=== PATIENT | female | born 1965 | race Caucasian/White ===

== ENCOUNTER 2016-07-02 06:31 | Emergency (ER) | payer OTHER ==
[2016-07-02 08:21] LABS: ABSOLUTE EOSINOPHILS # (AUTO) 0.1 10^3/uL (0.0-0.6); ABSOLUTE LYMPHOCYTES (AUTO) 1.1 10^3/uL (0.5-4.7); ABSOLUTE MONOCYTES (AUTO) 0.2 10^3/uL (0.1-1.4); ABSOLUTE NEUT (AUTO) 8.3 10^3/uL (1.7-8.2); BASOPHILS % (AUTO) 0.2 % (0-2); EOSINOPHILS % (AUTO) 0.7 % (0-6); HEMATOCRIT 40.7 % (36.0-47.0); HEMOGLOBIN 13.6 g/dL (12.0-15.5); HGB HCT DIFFERENCE 0.1; LYMPHOCYTES % (AUTO) 11.2 % (13-45); MEAN CORPUSCULAR HGB CONC 33.3 g/dL (32.0-36.0); MEAN CORPUSCULAR VOLUME 87 fl (80-97); MONOCYTES % (AUTO) 2.3 % (3-13); RED BLOOD COUNT 4.68 10^6/uL (3.72-5.28); RED CELL DISTRIBUTION WIDTH 14.3 % (11.5-14.0); SEGMENTED NEUTROPHILS % (AUTO) 85.6 % (42-78); WHITE BLOOD COUNT 9.7 10^3/uL (4.0-10.5)
[2016-07-02] MEDS ORDERED: NORMAL SALINE 1000 ML 1,000 ML IV ONE ×2 (08:28→11:08)
[2016-07-02] MEDS ORDERED: MORPHINE SULFATE 10 MG/ML INJ IV ONE (08:28)
[2016-07-02] MEDS ORDERED: ONDANSETRON HCL INJ/PF 4 MG/2 ML SDV IV ONE (08:28)
[2016-07-02 08:45] LABS: ALANINE AMINOTRANSFERASE 29 U/L (9-52); ALKALINE PHOSPHATASE 85 U/L (38-126); ANION GAP 11 (5-19); ASPARTATE AMINO TRANSFERASE 22 U/L (14-36); BILIRUBIN,DIRECT 0.1 mg/dL (0.0-0.4); BILIRUBIN,TOTAL 0.7 mg/dL (0.2-1.3); BLOOD UREA NITROGEN 7 mg/dL (7-20); CARBON DIOXIDE 26 mmol/L (22-30); CHLORIDE 106 mmol/L (98-107); CREATININE RESULT 0.38 mg/dL (0.52-1.25); GLUCOSE 104 mg/dL (75-110); LIPASE 44.6 U/L (23-300); SODIUM 142.8 mmol/L (137-145)
--- NOTE | 2016-07-02 08:48 | ER Document Report ---
ED General - General Mode of Arrival: Ambulatory Information source: Patient TRAVEL OUTSIDE OF THE [place] IN LAST 30 DAYS: No - HPI Patient complains to provider of: Vomiting Onset: This morning Onset/Duration: Sudden, Persistent Quality of pain: Cramping Associated symptoms: Diarrhea, Nausea, Vomiting. denies: Nonproductive cough, Fever <ABBY WILLETT - Last Filed: 07/02/16 10:25> <DORIS MILLER - Last Filed: 07/02/16 12:42> - General Chief Complaint: Nausea/Vomiting/Diarrhea Stated Complaint: ABDOMINAL PAIN,VOMITING,DIARRHEA Notes: Patient's 51-year-old female presenting to the emergency department chief complaint vomiting onset this morning. Patient states that she has had diarrhea since Saturday, June 30, for which she has been taking Imodium, and began vomiting today with accompanied cramping which eases up after she vomits. Patient denies any fever, cough, or any other symptoms at this time. (ABBY WILLETT) - Related Data Allergies/Adverse Reactions: Sulfa (Sulfonamide Antibiotics) Allergy (Verified 07/02/16 06:35) Past Medical History - General Information source: Patient - Social History Smoking Status: Never Smoker Chew tobacco use (# tins/day): No Frequency of alcohol use: None Lives with: Spouse/Significant other Family History: None, Reviewed & Not Pertinent Patient has suicidal ideation: No Patient has homicidal ideation: No Renal/ Medical History: Denies: Hx Peritoneal Dialysis GI Medical History: Reports: Hx Gastroesophageal Reflux Disease Musculoskeltal Medical History: Reports Hx Musculoskeletal Deformity - Spina bifida Psychiatric Medical History: Reports: Hx Depression - anxiety Past Surgical History: Reports: Hx Cholecystectomy, Hx Neurologic Surgery - Spinal fusion, Hx Orthopedic Surgery - numerous back surgeries - Immunizations Immunizations up to date: Yes Hx Diphtheria, Pertussis, Tetanus Vaccination: Yes <ABBY WILLETT - Last Filed: 07/02/16 10:25> Review of Systems - Review of Systems Constitutional: No symptoms reported. denies: Fever EENT: No symptoms reported Cardiovascular: No symptoms reported Respiratory: No symptoms reported. denies: Cough Gastrointestinal: See HPI, Abdominal pain, Diarrhea, Nausea, Vomiting Genitourinary: No symptoms reported Female Genitourinary: No symptoms reported Musculoskeletal: No symptoms reported Skin: No symptoms reported Hematologic/Lymphatic: No symptoms reported Neurological/Psychological: No symptoms reported <ABBY WILLETT - Last Filed: 07/02/16 10:25> Physical Exam - General General appearance: Alert, Other - Appears uncomfortable - HEENT Head: Normocephalic, Atraumatic Eyes: Normal Pupils: PERRL - Respiratory Respiratory status: No respiratory distress Chest status: Nontender Breath sounds: Normal Chest palpation: Normal - Cardiovascular Rhythm: Regular Heart sounds: Normal auscultation Murmur: No - Abdominal Inspection: Other - Soft Bowel sounds: Normal Tenderness: No: Tender - Back Back: Nontender, Scoliosis - Extremities General upper extremity: Normal inspection, Nontender General lower extremity: Normal inspection, Nontender - Neurological Neuro grossly intact: Yes Cognition: Normal Orientation: AAOx4 [place] Coma Scale Eye Opening: Spontaneous [place] Coma Scale Verbal: Oriented [place] Coma Scale Motor: Obeys Commands [place] Coma Scale Total: 15 Speech: Normal - Psychological Associated symptoms: Normal affect, Normal mood - Skin Skin Temperature: Warm Skin Moisture: Dry Skin Color: Normal <ABBY WILLETT - Last Filed: 07/02/16 10:25> Course - Laboratory Result Diagrams: 07/02/16 08:00 07/02/16 08:00 <ABBY WILLETT - Last Filed: 07/02/16 10:25> - Laboratory Result Diagrams: 07/02/16 08:00 07/02/16 08:00 <DORIS MILLER - Last Filed: 07/02/16 12:42> - Vital Signs Vital signs: Temp Pulse Resp BP Pulse Ox 97.6 F 109 H 18 104/62 98 07/02/16 10:08 07/02/16 10:08 07/02/16 10:08 07/02/16 10:08 07/02/16 10:08 - Laboratory Laboratory results interpreted by nv: 07/02/16 07/02/16 07/02/16 08:00 08:00 08:32 RDW 14.3 H Seg Neutrophils % 85.6 H Lymphocytes % 11.2 L Monocytes % 2.3 L Absolute Neutrophils 8.3 H Creatinine 0.38 L Urine Ketones TRACE H Ur Leukocyte Esterase MODERATE H Discharge <ABBY WILLETT - Last Filed: 07/02/16 10:25> <DORIS MILLER - Last Filed: 07/02/16 12:42> - Discharge Clinical Impression: Nausea vomiting and diarrhea, Abdominal cramps Urinary tract infection Qualifiers: Urinary tract infection type: site unspecified Hematuria presence: without hematuria Qualified Code(s): N39.0 - Urinary tract infection, site not specified Condition: Stable Disposition: HOME, SELF-CARE Additional Instructions: Urinary Tract Infection: Your evaluation indicates that you have a urinary tract infection. This is due to germs growing in the bladder. This is a common problem. This infection usually responds quickly to antibiotics. Your antibiotic should be taken exactly as prescribed. Drink plenty of fluids -- three to four quarts a day. Occasionally, a bladder anesthetic will be prescribed to help stop the feeling of urgency until the antibiotic has a chance to clear the infection. This may cause your urine to be dark orange. Certain urine infections require a culture. If the doctor obtained a culture, the results will be back in two days. You should call to see if a change in treatment is needed. A repeat urinalysis after you finish treatment is often recommended. The physician will let you know if further testing is required. Call the doctor if you develop fever, chills, flank pain, inability to urinate, or blood in the urine. Nausea or Vomiting, Nonspecific: Vomiting (or nausea without vomiting) can be caused by many different problems. Of course, it can mean that something's wrong with the stomach, such as "stomach flu," ulcers, or inflammation. But it can also be a symptom of a problem that has nothing to do with the stomach or intestines. Vomiting is common with severe headaches, earaches, and tonsillitis. We see it with pneumonia or heart attacks. Drugs can cause nausea. Many abdominal problems cause vomiting; for example, gallstones, kidney stones, pancreatitis, and intestinal obstruction (blocked bowels). In most cases, curing the vomiting depends on fixing the problem that caused it. For temporary relief, we may use an anti-nausea medicine. For home use, we can prescribe suppositories, chewable pills, pills that dissolve in the mouth, or liquid anti-nausea drugs. If the vomiting seems to be caused by a problem in the stomach, acid-suppressing drugs may be prescribed as well. It's important to avoid dehydration. Sip clear liquids. Take increasing amounts of fluid over the first 24 hours. Then start small amounts of bland foods (such as dry toast, applesauce, mashed potato). Avoid aspirin, tobacco, and alcohol. Gradually resume your usual diet. If the vomiting worsens, if the problem that's making you vomit worsens, or if there's evidence of bleeding in the stomach (such as black, tarry stool, bloody or black vomit, or lightheadedness), you should return immediately. Call your doctor if you aren't improved in 24 to 36 hours. TAKE THE MEDICATION PRESCRIBED. DRINK PLENTY OF FLUIDS. REST. FOLLOW UP WITH YOUR DOCTOR IF NOT IMPROVING. RETURN TO THE EMERGENCY ROOM IF ANY NEW OR WORSENING SYMPTOMS. Prescriptions: Cephalexin Monohydrate [Keflex 500 mg Capsule] 500 mg PO QID #20 capsule Fluconazole [Diflucan] 150 mg PO ONCE PRN #3 tablet PRN Reason: Ondansetron HCl [Zofran 4 mg Tablet] 1 - 2 tab PO Q4H PRN #15 tablet PRN Reason: Phenobarb/Hyoscy/Atropine/Scop [ Tablet] 1 - 2 tab PO Q4 PRN #20 tablet PRN Reason: Forms: Return to Work Scribe Attestation: 07/02/16 12:42 I personally performed the services described in the documentation, reviewed and edited the documentation which was dictated to the scribe in my presence, and it accurately records my words and actions. (DORIS MILLER) Scribe Documentation - Scribe Written by Scribe:: Abby Willett 07/02/2016 0842 acting as scribe for :: Pat <ABBY WILLETT - Last Filed: 07/02/16 10:25>
[2016-07-02 09:40] LABS: APPEARANCE,URINE CLOUDY; BILIRUBIN,URINE NEGATIVE (NEGATIVE); GLUCOSE, URINE NEGATIVE (NEGATIVE); KETONES,URINE TRACE mg/dL (NEGATIVE); LEUKOCYTE ESTERASE,URINE MODERATE (NEGATIVE); NITRITE,URINE NEGATIVE (NEGATIVE); PROTEIN,URINE NEGATIVE (NEGATIVE); URINE SPECIFIC GRAVITY 1.017; UROBILINOGEN,URINE NEGATIVE mg/dL (<2.0)
[2016-07-02] MEDS ORDERED: CEFTRIAXONE 1 GM/D5W RTU 50 ML IV ONE (11:08)
[2016-07-02] MEDS ORDERED: METOCLOPRAMIDE HCL INJ/PF 10 MG/2 ML SDV IV ONE (11:08)
[2016-07-02 13:08] VITALS: BP 108/72
== END 2016-07-02 13:08 | disposition home or self-care (01) ==
LOC: ER 06:31
DX: R19.7 Diarrhea, unspecified (principal); N39.0 Urinary tract infection, site not specified; R11.2 Nausea with vomiting, unspecified; R10.9 Unspecified abdominal pain; Z88.2 Allergy status to sulfonamides; Z87.19 Personal history of other diseases of the digestive system; Z90.49 Acquired absence of other specified parts of digestive tract
CPT/HCPCS: 99284; 96361; 96375; 96365; 36415; 87086; 83690; 85025; 81025; 87088; 80053; 81001; 87186; 74022; J2765; J2270; J2405; J7030; J0696

== ENCOUNTER 2016-08-18 23:57 | Emergency (ER) | payer OTHER ==
[2016-08-19] MEDS ORDERED: ONDANSETRON HCL INJ/PF 4 MG/2 ML SDV IV ONE (01:35)
[2016-08-19] MEDS ORDERED: MORPHINE SULFATE 10 MG/ML INJ IV ONE ×2 (01:35→06:43)
[2016-08-19] MEDS ORDERED: DIPHENHYDRAMINE HCL 50 MG/ML VIAL IV ONE (01:35)
[2016-08-19] MEDS ORDERED: NORMAL SALINE 1000 ML 1,000 ML IV ONE (01:38)
--- NOTE | 2016-08-19 01:39 | ER Document Report ---
ED GI/ - General Chief Complaint: Abdominal Pain Stated Complaint: ABDOMINAL PAIN Time Seen by Provider: 08/19/16 01:27 Notes: Patient is a 51-year-old female who comes emergency department for chief complaint of pain in her abdomen, pain is both in upper and lower, worse on the left, symptoms started about 4 days ago but worsened considerably this evening. She states she vomited about 4 times this evening, denies blood in the vomit. Patient has had a cholecystectomy. Past medical history of chronic back pain , on hydrocodone, gabapentin. Daughter states that patient intermittently gets these symptoms. Patient has not had a bowel movement since symptoms started 4 days ago. Patient took a stool softener/laxative today and symptoms worsened. TRAVEL OUTSIDE OF THE [place] IN LAST 30 DAYS: No - Related Data Allergies/Adverse Reactions: Sulfa (Sulfonamide Antibiotics) Allergy (Verified 07/02/16 06:35) Past Medical History - General Information source: Patient - Social History Smoking Status: Never Smoker Chew tobacco use (# tins/day): No Frequency of alcohol use: None Drug Abuse: None Lives with: Family Family History: None, Reviewed & Not Pertinent Patient has suicidal ideation: No Patient has homicidal ideation: No Renal/ Medical History: Denies: Hx Peritoneal Dialysis GI Medical History: Reports: Hx Gastroesophageal Reflux Disease Musculoskeltal Medical History: Reports Hx Musculoskeletal Deformity - Spina bifida Psychiatric Medical History: Reports: Hx Depression - anxiety Past Surgical History: Reports: Hx Cholecystectomy, Hx Neurologic Surgery - Spinal fusion, Hx Orthopedic Surgery - numerous back surgeries - Immunizations Immunizations up to date: Yes Hx Diphtheria, Pertussis, Tetanus Vaccination: Yes Review of Systems - Review of Systems Constitutional: No symptoms reported EENT: No symptoms reported Cardiovascular: No symptoms reported Respiratory: No symptoms reported Gastrointestinal: See HPI Genitourinary: No symptoms reported Female Genitourinary: No symptoms reported Musculoskeletal: No symptoms reported Skin: No symptoms reported Hematologic/Lymphatic: No symptoms reported Neurological/Psychological: No symptoms reported Physical Exam - Vital signs Vitals: Temp Pulse Resp BP Pulse Ox 98 F 70 18 131/84 H 96 08/19/16 00:02 08/19/16 00:02 08/19/16 00:02 08/19/16 00:02 08/19/16 00:02 Interpretation: Normal - General General appearance: Alert, Anxious In distress: Mild - Patient appears uncomfortable - HEENT Head: Normocephalic, Atraumatic Eyes: Normal Pupils: PERRL - Respiratory Respiratory status: No respiratory distress Chest status: Nontender Breath sounds: Normal. No: Decreased air movement Chest palpation: Normal - Cardiovascular Rhythm: Regular. No: Tachycardia Heart sounds: Normal auscultation, S1 appreciated, S2 appreciated Murmur: No - Abdominal Inspection: Normal Distension: No distension Bowel sounds: Normal Tenderness: Tender - Generalized tenderness over the abdomen, nonspecific, no guarding Organomegaly: No organomegaly - Back Back: Nontender, Scoliosis - Significant scoliosis noted on examination, no tenderness over the back, no CVA tenderness, normal distal neurovascular exam - Extremities General upper extremity: Normal inspection, Nontender, Normal color, Normal ROM , Normal temperature General lower extremity: Normal inspection, Nontender, Normal color, Normal ROM , Normal temperature, Normal weight bearing. 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 CBC shows some mild leukocytosis, patient not tachycardic, hypotensive, or febrile. Chemistry unremarkable. I discussed workup with patient, discussed enema, she states she would like to have one. Patient more comfortable after initial medications. Enema performed, had some hard stools and some soft stools, no significant bowel movement. Patient still complaining of cramping and discomfort after the enema. I recommended because of her ongoing pain that a CAT scan be performed with oral and IV contrast to further evaluate any acute abnormality, patient declines, patient states she is ready to go home and she wants to do this and take her Linzess, she states this has worked for her in the past and she has had these symptoms frequently with the same scenario. I did agree to this, providing Colace for her to take regularly with her hydrocodone pain management , I discussed follow-up with primary care, I discussed return precautions in detail including potential return for additional workup, patient states understanding and agreement. - Vital Signs Vital signs: Temp Pulse Resp BP Pulse Ox 98.0 F 106 H 18 123/72 97 08/19/16 06:38 08/19/16 06:38 08/19/16 06:38 08/19/16 06:38 08/19/16 06:38 - Laboratory Result Diagrams: 08/19/16 01:45 08/19/16 01:45 Laboratory results interpreted by me: 08/19/16 08/19/16 01:45 01:45 WBC 11.1 H Seg Neutrophils % 90.4 H Lymphocytes % 6.7 L Monocytes % 2.4 L Absolute Neutrophils 10.0 H Creatinine 0.46 L Glucose 139 H Calcium 10.4 H Total Protein 8.4 H Discharge - Discharge Clinical Impression: Abdominal pain Qualifiers: Abdominal location: generalized Qualified Code(s): R10.84 - Generalized abdominal pain Condition: Stable Disposition: HOME, SELF-CARE Additional Instructions: At this time you have declined additional workup. I recommend taking your stool softener, drinking plenty of fluids, and also beginning the Colace daily to take with your oral narcotic prescription to avoid constipation pains. Please return to emergency department immediately if you worsen including flank pain, fever, vomiting that is not controlled with the nausea medication prescribed, worsening abdominal pain, bloody stools, or any other concerning symptoms. Prescriptions: Docusate Sodium [Colace 100 mg Capsule] 100 mg PO DAILY #30 capsule Promethazine HCl [Phenergan 25 mg Tablet] 1 - 2 tab PO Q6H PRN #20 tablet PRN Reason: Forms: Return to Work
[2016-08-19 01:52] LABS: ABSOLUTE BASOPHILS # (AUTO) 0.1 10^3/uL (0.0-0.2); ABSOLUTE LYMPHOCYTES (AUTO) 0.7 10^3/uL (0.5-4.7); ABSOLUTE MONOCYTES (AUTO) 0.3 10^3/uL (0.1-1.4); BASOPHILS % (AUTO) 0.5 % (0-2); HEMOGLOBIN 13.9 g/dL (12.0-15.5); HGB HCT DIFFERENCE -0.3; LYMPHOCYTES % (AUTO) 6.7 % (13-45); MEAN CORPUSCULAR HEMOGLOBIN 28.3 pg (27.0-33.4); MEAN CORPUSCULAR HGB CONC 33.1 g/dL (32.0-36.0); MEAN CORPUSCULAR VOLUME 86 fl (80-97); MONOCYTES % (AUTO) 2.4 % (3-13); RED BLOOD COUNT 4.91 10^6/uL (3.72-5.28); SEGMENTED NEUTROPHILS % (AUTO) 90.4 % (42-78); WHITE BLOOD COUNT 11.1 10^3/uL (4.0-10.5)
[2016-08-19 02:10] LABS: ALANINE AMINOTRANSFERASE 37 U/L (9-52); ALBUMIN 4.5 g/dL (3.5-5.0); ALKALINE PHOSPHATASE 97 U/L (38-126); ANION GAP 13 (5-19); ASPARTATE AMINO TRANSFERASE 26 U/L (14-36); BILIRUBIN,DIRECT 0.4 mg/dL (0.0-0.4); BILIRUBIN,TOTAL 0.8 mg/dL (0.2-1.3); BLOOD UREA NITROGEN 7 mg/dL (7-20); CALCIUM 10.4 mg/dL (8.4-10.2); CARBON DIOXIDE 30 mmol/L (22-30); CHLORIDE 99 mmol/L (98-107); CREATININE RESULT 0.46 mg/dL (0.52-1.25); GLUCOSE 139 mg/dL (75-110); LIPASE 36.6 U/L (23-300); POTASSIUM 3.9 mmol/L (3.6-5.0); SODIUM 141.6 mmol/L (137-145); TOTAL PROTEIN 8.4 g/dL (6.3-8.2)
[2016-08-19] MEDS ORDERED: MINERAL OIL 30 ML UDCUP ONE (04:26)
[2016-08-19] MEDS ORDERED: MINERAL OIL 30 ML UDCUP PR ONE (04:52)
[2016-08-19] MEDS ORDERED: LORAZEPAM 1 MG TABLET PO ONE (05:49)
[2016-08-19 06:39] VITALS: BP 123/72
[2016-08-19] MEDS ORDERED: ONDANSETRON ODT 4 MG TAB (6 TAB/DSPK) PO PRN (06:46)
== END 2016-08-19 07:07 | disposition home or self-care (01) ==
LOC: ER 23:57
DX: R10.84 Generalized abdominal pain (principal); R11.10 Vomiting, unspecified; M41.9 Scoliosis, unspecified; M54.9 Dorsalgia, unspecified; G89.29 Other chronic pain; Z79.891 Long term (current) use of opiate analgesic; Z79.899 Other long term (current) drug therapy; Z90.49 Acquired absence of other specified parts of digestive tract; Z87.19 Personal history of other diseases of the digestive system; Z98.1 Arthrodesis status; F41.9 Anxiety disorder, unspecified; D72.829 Elevated white blood cell count, unspecified
CPT/HCPCS: 96376; 99284; 96374; 96375; 36415; 83690; 85025; 80053; 74022; J1200; J3490; J2270; J2405; J7030

== ENCOUNTER → 2016-10-04 | Outpatient (CLI) | payer OTHER ==
--- NOTE | 2016-10-04 14:24 | RADIOLOGY REPORT (SQ) ---
EXAM DESCRIPTION: LUMBAR SPINE COMPLETE COMPLETED DATE/TIME: 10/04/2016 11:48 am REASON FOR STUDY: LOW BACK PAIN,SCOLIOSIS UNSPEC M54.5 LOW BACK PAIN M41.9 SCOLIOSIS, UNSPECIFIED R19.7 DIARRHEA, UNSPECIFIED COMPARISON: CT abdomen pelvis 08/05/2014 Abdominal films 07/02/2016 Thoracic spine two views 10/04/2016 NUMBER OF VIEWS: Five views including obliques. TECHNIQUE: AP, lateral, oblique, and sacral radiographic images acquired of the lumbar spine. LIMITATIONS: None. FINDINGS: MINERALIZATION: Osteopenic SEGMENTATION: Normal. No transitional anatomy. ALIGNMENT: Profound convex leftward lumbar curvature, about 40 convex leftward lumbar curvature from the top of L1 to the bottom of L5. VERTEBRAE: Maintained height. No fracture or worrisome bone lesion. DISCS: Diffuse ankylosis throughout the visualized lower thoracic and entire lumbar spine. Bony fusi on across the posterior elements and intervertebral discs. POSTERIOR ELEMENTS: Bilateral lower lumbar laminectomy at L4 and L5. Diffuse ankylosis throughout th e transverse processes and posterior elements HARDWARE: Thoracic Guzman rods at the upper edge of the field of view. Multiple surgical clips r ight upper quadrant post cholecystectomy and in the midline retroperitoneum. PARASPINAL SOFT TISSUES: Normal. PELVIS: Very dense sclerosis bilateral SI joints left greater than right OTHER: No other significant finding. IMPRESSION: Diffuse lumbar spine ankylosis, scoliosis, bilateral SI joint sclerosis [id number] n-right TECHNICAL DOCUMENTATION: JOB ID: [id number] [employer]- All Rights Reserved
--- NOTE | 2016-10-04 14:29 | RADIOLOGY REPORT (SQ) ---
EXAM DESCRIPTION: T SPINE AP/LAT COMPLETED DATE/TIME: 10/04/2016 11:48 am REASON FOR STUDY: LOW BACK PAIN,SCOLIOSIS UNSPEC M54.5 LOW BACK PAIN M41.9 SCOLIOSIS, UNSPECIFIED R19.7 DIARRHEA, UNSPECIFIED COMPARISON: Chest film 08/19/2016 NUMBER OF VIEWS: Two views. TECHNIQUE: AP and lateral radiographic images acquired of the thoracic spine. LIMITATIONS: None. FINDINGS: MINERALIZATION: Osteopenic ALIGNMENT: 47 of convex rightward curvature from the top of T2 to the bottom of T8. VERTEBRAE: No fracture or bone lesion. Maintained height, normal segmentation. DISCS: Ankylosis across the thoracic disc spaces. HARDWARE: 7 cm long fragment of a right-sided Guzman rosanna is present, with posterior element ancho r at T6 MEDIASTINUM AND SOFT TISSUES: Normal heart size and aortic contour. No soft tissue abnormality. VISUALIZED LUNG CHRIS: Clear. OTHER: Clips right upper quadrant post cholecystectomy IMPRESSION: Scoliosis TECHNICAL DOCUMENTATION: JOB ID: [id number] [employer]- All Rights Reserved
== END ==
LOC: OD 11:22
PROVIDERS: ATTEND Obstetrics & Gynecology
DX: M54.5 Low back pain (principal); M41.9 Scoliosis, unspecified; R19.7 Diarrhea, unspecified
CPT/HCPCS: 72070; 72110; 87493

== ENCOUNTER → 2019-03-21 | Outpatient (CLI) | payer MEDICARE, OTHER ==
--- NOTE | 2019-03-23 10:25 | RADIOLOGY REPORT (SQ) ---
EXAM DESCRIPTION: MRI LUMBAR SPINE WITHOUT COMPLETED DATE/TIME: 03/21/2019 12:13 pm REASON FOR STUDY: M54.17 RADICULOPATHY LUMBOSACRAL REGION M54.17 RADICULOPATHY, LUMBOSACRAL REGION COMPARISON: CT abdomen pelvis 08/05/2014 Thoracic and lumbar spine films 10/04/2016 TECHNIQUE: Sagittal and Axial imaging includes T1, T2, STIR and gradient echo sequences. Coronal T2/ HASTE imaging. LIMITATIONS: Study is limited by significant convex leftward lumbar scoliosis. FINDINGS: Patient has convex leftward lumbar curvature and prior spina bifida repair. There is a du plicated spinal cord from the upper edge of the field of view at T9 through the L4-5 level. A clear bony division or diastem in the thoracic cord canal is not identified. However, 2 discrete thecal sa cs with a dural division between the right and left spinal canal is seen on axial T2 image 19/33 at a bout the level of the L3-4 disc space. The right and left spinal cord are tethered to the posterior aspect of the canal at about the L4-5 le mary, best shown on sagittal T2 series 6, image 6/16. Patient has a broad dorsal bilateral decompressive laminectomy from T9 level through the lumbosacral junction. Bone graft material is present along the posterior elements from about T9 through L3-4. A t L4, L5, and S1 a bilateral dorsal wide decompressive laminectomy is present, best shown on sagittal T2 image 4. No lumbosacral disc protrusion/herniation. No high-grade foraminal stenosis Residual fragment of Guzman rosanna is seen over the right lower thoracic region at the upper edge of the field of view. Asymmetric dense bony sclerosis left SI joint on coronal image 17/22. IMPRESSION: Extensive postsurgical changes with tethered spinal cord, conus is at the L4-5 level. Patient has diastematomyelia with a double spinal cord Convex leftward lumbar curvature. Left SI joint sclerosis. TECHNICAL DOCUMENTATION: JOB ID: [id number]- All Rights Reserved Reading location - IP/workstation name: [email or web address]
== END ==
LOC: RAD 11:03
PROVIDERS: ATTEND Pain Medicine Interventional Pain Medicine
DX: M54.17 Radiculopathy, lumbosacral region (principal); M54.6 Pain in thoracic spine; Q06.2 Diastematomyelia; M43.8X6 Other specified deforming dorsopathies, lumbar region
CPT/HCPCS: 72148

== ENCOUNTER → 2019-06-02 | Outpatient (CLI) | payer MEDICARE, OTHER ==
--- NOTE | 2019-06-02 14:58 | RADIOLOGY REPORT (SQ) ---
EXAM DESCRIPTION: C SP 4 OR 5 VIEWS COMPLETED DATE/TIME: 06/02/2019 2:24 pm REASON FOR STUDY: C STRAIN COMPARISON: None. NUMBER OF VIEWS: Five views. TECHNIQUE: AP, lateral, obliques and odontoid radiographic images acquired of the cervical spine. LIMITATIONS: None. FINDINGS: MINERALIZATION: Normal. ALIGNMENT: Levoscoliosis. VERTEBRAE: Vertebral bodies of normal height. DISCS: Disc spaces are narrowed from C4-T1. Marginal osteophytes are most prominent at C4-5 and C5-6 . FORAMINA: No osteophytes or foraminal narrowing. LATERAL AND POSTERIOR ELEMENTS: Facets, lateral masses and spinous processes without significant find ings. HARDWARE: None in the spine. SOFT TISSUES: No masses or calcifications. Lung apices clear. OTHER: No other significant finding. IMPRESSION: Scoliosis. Degenerative disc disease and spondylosis. TECHNICAL DOCUMENTATION: JOB ID: [id number] 2010 [employer]- All Rights Reserved Reading location - IP/workstation name: [email or web address]
== END ==
LOC: OD 13:54
PROVIDERS: ATTEND Obstetrics & Gynecology
DX: S16.1XXA Strain of muscle, fascia and tendon at neck level, initial encounter (principal); X58.XXXA Exposure to other specified factors, initial encounter; M50.321 Other cervical disc degeneration at C4-C5 level; M47.892 Other spondylosis, cervical region
CPT/HCPCS: 72050

== ENCOUNTER → 2019-07-21 | Outpatient (CLI) | payer MEDICARE ==
--- NOTE | 2019-07-21 12:46 | RADIOLOGY REPORT (SQ) ---
EXAM DESCRIPTION: MRI CERVICAL SPINE WITHOUT IMAGES COMPLETED DATE/TIME: 07/21/2019 11:37 am REASON FOR STUDY: CERVICAL DISC DISORDER AT C6-C7 WITH RADICULOPATHY (M50.123) M50.123 CERVICAL DIS C DISORDER AT C6-C7 LEVEL WITH RADICULOP COMPARISON: 06/02/2019 radiographs. TECHNIQUE: Sagittal and Axial imaging includes T1, T2, STIR and gradient echo sequences. LIMITATIONS: None. FINDINGS: ALIGNMENT: Reversal of the normal cervical curvature. Based on correlation with the radio graphs, probably accentuated by positioning for today's MRI. No subluxation. VERTEBRAE: No evidence of acute fracture. BONE MARROW: Relatively chronic appearing endplate degenerative changes at C4-5 and C5-6. No signifi cant marrow edema. No marrow replacement process. DISCS: Variable disc signal and height loss. Most pronounced at C4-5 and C5-6. HARDWARE: None in the spine. CORD AND BASE OF BRAIN: Normal in size and signal intensity. SOFT TISSUES: No soft tissue masses. C1-C2: No significant spinal stenosis. C2-C3: No significant spinal stenosis or exit foraminal stenosis. C3-C4: No significant spinal stenosis or exit foraminal stenosis. C4-C5: Disc osteophyte complex without cord compression or significant central or foraminal stenosis. C5-C6: Disc osteophyte complex without cord compression. Mild -moderate foraminal narrowing. C6-C7: Left facet arthropathy with at least moderate left foraminal stenosis. C7-T1: No significant spinal stenosis or exit foraminal stenosis. UPPER THORACIC: Incompletely imaged. No significant spinal stenosis or exit foraminal stenosis. OTHER: No other significant finding. IMPRESSION: 1. Reversal of the normal cervical spinal curve, likely accentuated by positioning with today's MRI. 2. Spondylosis without cord compression. Variable noncritical foraminal narrowing as described. 3. No fracture or worrisome bone lesion. No cord lesions detected. TECHNICAL DOCUMENTATION: JOB ID: [id number] [employer]- All Rights Reserved Reading location - IP/workstation name: [email or web address]
== END ==
LOC: RAD 10:42
PROVIDERS: ATTEND Pain Medicine Interventional Pain Medicine
DX: M50.123 Cervical disc disorder at C6-C7 level with radiculopathy (principal)
CPT/HCPCS: 72141

== ENCOUNTER → 2019-09-16 | Outpatient (CLI) | payer MEDICARE ==
[2019-09-16 14:12] LABS: FREE T4 (FREE THYROXINE) 1.18 ng/dL (0.78-2.19)
[2019-09-16 14:25] LABS: THYROID STIMULATING HORMONE 0.9 uIU/mL (0.47-4.68)
[2019-09-16 14:44] LABS: CALCIUM 10.3 mg/dL (8.4-10.2)
[2019-09-16 14:45] LABS: ALBUMIN 4.4 g/dL (3.5-5.0); ANION GAP 5 (5-19); BLOOD UREA NITROGEN 13 mg/dL (7-20); CARBON DIOXIDE 33 mmol/L (22-30); CHLORIDE 99 mmol/L (98-107); GLUCOSE 100 mg/dL (75-110); POTASSIUM 4.1 mmol/L (3.6-5.0)
[2019-09-16 14:46] LABS: ALKALINE PHOSPHATASE 81 U/L (38-126); ASPARTATE AMINO TRANSFERASE 21 U/L (14-36); BILIRUBIN,TOTAL 0.4 mg/dL (0.2-1.3); TOTAL PROTEIN 7.7 g/dL (6.3-8.2)
[2019-09-16 14:47] LABS: C-REACTIVE PROTEIN 5.1 mg/L (<10.0)
== END ==
LOC: OD 12:47
PROVIDERS: ATTEND Pain Medicine Interventional Pain Medicine
DX: G89.4 Chronic pain syndrome (principal); R53.81 Other malaise; Z79.899 Other long term (current) drug therapy
CPT/HCPCS: 36415; 80053; 82607; 82652; 84439; 84443; 85652; 86140; 86431

== ENCOUNTER 2020-01-10 20:46 | Emergency (ER) | payer MEDICARE ==
[2020-01-10] MEDS ORDERED: MORPHINE SULFATE 10 MG/ML INJ IM ONE (21:24)
--- NOTE | 2020-01-10 21:31 | ER Document Report ---
ED Medical Screen (RME) - General Chief Complaint: Headache Stated Complaint: HEADACHE/NECK PAIN Time Seen by Provider: 01/10/20 21:16 Primary Care Provider: REJI LEIJA MD [Primary Care Provider] - Follow up as needed Mode of Arrival: Wheelchair Information source: Relative Notes: HPI; a 54-year-old female past medical history significant for spina bifida, meningitis, neuropathy, migraines, neuropathic chronic pain followed by pain management presents to the emergency room complaining of worsening neck pain and a headache for the past 2 days. States she was seen at [facility] emergency room last night. States she was given IV fluids, IV medications, had a CT of her head and x-ray of her neck was discharged home. States the pain is gotten progressively worse today. She denies worst headache of her life. States she is been taking her hydrocodone, gabapentin, Toprol exam, prednisone, and Fioricet without relief. She denies any new trauma or injury. No sudden thunderclap. PE: Alert and oriented x3. Moderate distress noted. Crying and moaning while trying to be triaged. Difficult to assess secondary to pain and inability to sit still to be assessed. Lungs: Clear to auscultation without rales, rhonchi, wheezes. Heart: Regular rate rhythm without murmurs, rubs, gallops. Patient consistently asking for IV medications. Patient was counseled that until we can get her into a room in the back she cannot receive any IVs or IV medications in triage. We will give her a one-time dose of IM morphine reevaluate and labs pending. I have greeted and performed a rapid initial assessment of this patient. A comprehensive ED assessment and evaluation of the patient, analysis of test results and completion of the medical decision making process will be conducted by additional ED providers. I have specifically instructed the patient or family members with the patient to immediately return to any nursing staff should anything change in the patient's condition or with their chief complaint. TRAVEL OUTSIDE OF THE [place] IN LAST 30 DAYS: No - Related Data Allergies/Adverse Reactions: Sulfa (Sulfonamide Antibiotics) Allergy (Verified 07/02/16 06:35) Past Medical History Renal/ Medical History: Denies: Hx Peritoneal Dialysis GI Medical History: Reports: Hx Gastroesophageal Reflux Disease Musculoskeltal Medical History: Reports Hx Musculoskeletal Deformity - Spina bifida Psychiatric Medical History: Reports: Hx Depression - anxiety Past Surgical History: Reports: Hx Cholecystectomy, Hx Neurologic Surgery - Spinal fusion, Hx Orthopedic Surgery - numerous back surgeries - Immunizations Immunizations up to date: Yes Hx Diphtheria, Pertussis, Tetanus Vaccination: Yes Doctor's Discharge - Discharge Referrals: REJI LEIJA MD [Primary Care Provider] - Follow up as needed
[2020-01-10 22:57] LABS: ABSOLUTE LYMPHOCYTES (AUTO) 0.8 10^3/uL (0.5-4.7); ABSOLUTE MONOCYTES (AUTO) 0.5 10^3/uL (0.1-1.4); BASOPHILS % (AUTO) 0.1 % (0-2); HEMATOCRIT 41.1 % (36.0-47.0); HEMOGLOBIN 13.8 g/dL (12.0-15.5); LYMPHOCYTES % (AUTO) 5.5 % (13-45); MEAN CORPUSCULAR HEMOGLOBIN 29.1 pg (27.0-33.4); MEAN CORPUSCULAR HGB CONC 33.6 g/dL (32.0-36.0); MEAN CORPUSCULAR VOLUME 87 fl (80-97); MONOCYTES % (AUTO) 3.4 % (3-13); PLATELET COUNT 630 10^3/uL (150-450); RED BLOOD COUNT 4.74 10^6/uL (3.72-5.28); RED CELL DISTRIBUTION WIDTH 15.9 % (11.5-14.0); TOTAL CELLS COUNTED % (AUTO) 100 %; WHITE BLOOD COUNT 15.3 10^3/uL (4.0-10.5)
[2020-01-10 23:17] LABS: ALBUMIN 4.3 g/dL (3.5-5.0); ALKALINE PHOSPHATASE 208 U/L (38-126); ANION GAP 14 (5-19); ASPARTATE AMINO TRANSFERASE 27 U/L (14-36); BILIRUBIN,DIRECT 0.4 mg/dL (0.0-0.4); BILIRUBIN,TOTAL 0.5 mg/dL (0.2-1.3); BLOOD UREA NITROGEN 11 mg/dL (7-20); CALCIUM 10.7 mg/dL (8.4-10.2); CARBON DIOXIDE 29 mmol/L (22-30); CHLORIDE 99 mmol/L (98-107); GLUCOSE 148 mg/dL (75-110); POTASSIUM 3.7 mmol/L (3.6-5.0)
[2020-01-11 01:32] LABS: APPEARANCE,URINE CLOUDY; BILIRUBIN,URINE NEGATIVE (NEGATIVE); COLOR,URINE YELLOW; GLUCOSE, URINE NEGATIVE (NEGATIVE); KETONES,URINE TRACE mg/dL (NEGATIVE); LEUKOCYTE ESTERASE,URINE MODERATE (NEGATIVE); NITRITE,URINE POSITIVE (NEGATIVE); PROTEIN,URINE 30 mg/dL (NEGATIVE); URINE SPECIFIC GRAVITY 1.018; UROBILINOGEN,URINE NEGATIVE mg/dL (<2.0)
[2020-01-11] MEDS ORDERED: HYDROMORPHONE HCL INJ/PF 2 MG/ML AMPULE IV ONE (02:39)
[2020-01-11] MEDS ORDERED: DIAZEPAM INJ 10 MG/2 ML DISP.SYRIN IV ONE (02:39)
[2020-01-11] MEDS ORDERED: NORMAL SALINE 1000 ML 1,000 ML IV ONE (02:39)
[2020-01-11] MEDS ORDERED: CEFTRIAXONE 1 GM/D5W RTU 1 GM/50 ML RTUPB IV ONE (02:40)
[2020-01-11] MEDS ORDERED: ONDANSETRON HCL INJ/PF 4 MG/2 ML SDV IV ONE (02:41)
--- NOTE | 2020-01-11 02:42 | ER Document Report ---
ED General - General Chief Complaint: Neck Pain < 24hrs old Stated Complaint: HEADACHE/NECK PAIN Time Seen by Provider: 01/10/20 21:16 Primary Care Provider: REJI LEIJA MD [Primary Care Provider] - Follow up as needed Mode of Arrival: Wheelchair TRAVEL OUTSIDE OF THE [place] IN LAST 30 DAYS: No - HPI Context: This is a 54-year-old female with a past medical history significant for spina bifida, meningitis, neuropathy, migraines, neuropathic chronic pain presenting to the emergency department complaining of severe neck pain and a headache for 2 days. Patient states that she is seen at a pain management clinic. Patient states that she was seen at the [facility] emergency room last night. Patient was given IV fluids, IV medications had a CT of her head done as well as a x-ray of her neck and was discharged home. Patient states that the pain has gotten progressively worse today patient denies thunderclap onset of headache. Patient denies this being the worst headache of her life. Patient states she has been taking hydrocodone, gabapentin, Toprol-XL, prednisone and Fioricet without relief. Patient denies any recent trauma or injury. Patient denies fever, chills, photophobia, loss of sense of taste or smell, shortness of bernardo ath, cough, chest pain, abdominal pain. Patient denies history of prior COVID 19 infection or knowledge of known contact with COVID positive persons or persons under investigation for COVID. Patient rates her neck pain as a 5 out of 5 and her headache is a 4 out of 5. Patient describes her headache as diffuse and sharp and localizes her neck pain to the posterior region of her neck and also describes it as sharp. Patient states she has not had any alleviating treatments and touch and movement of her head neck make her symptoms worse. Associated symptoms: Other - See HPI Exacerbated by: Other - See HPI Relieved by: Other - See HPI - Related Data Allergies/Adverse Reactions: Sulfa (Sulfonamide Antibiotics) Allergy (Verified 07/02/16 06:35) Past Medical History - General Information source: Patient, Relative - Social History Smoking Status: Unknown if Ever Smoked Chew tobacco use (# tins/day): No Frequency of alcohol use: None Drug Abuse: None Lives with: Family Family History: None, Reviewed & Not Pertinent Patient has homicidal ideation: No Neurological Medical History: Reports: Hx Migraine, Other - Spina bifida Other: Neuropathic pain Renal/ Medical History: Denies: Hx Peritoneal Dialysis GI Medical History: Reports: Hx Gastroesophageal Reflux Disease Musculoskeletal Medical History: Reports Hx Musculoskeletal Deformity - Spina bifida Psychiatric Medical History: Reports: Hx Depression - anxiety Past Surgical History: Reports: Hx Cholecystectomy, Hx Neurologic Surgery - Spinal fusion, Hx Orthopedic Surgery - numerous back surgeries - Immunizations Immunizations up to date: Yes Hx Diphtheria, Pertussis, Tetanus Vaccination: Yes Review of Systems - Review of Systems Constitutional: See HPI EENT: Other - Neck pain Cardiovascular: No symptoms reported Respiratory: No symptoms reported Gastrointestinal: No symptoms reported Genitourinary: No symptoms reported Female Genitourinary: No symptoms reported Musculoskeletal: Neck pain Skin: No symptoms reported Hematologic/Lymphatic: No symptoms reported Neurological/Psychological: Headaches -: Yes All other systems reviewed and negative Physical Exam - Vital signs Vitals: Temp Pulse Resp BP Pulse Ox 98.6 F 87 14 132/91 H 97 01/10/20 23:53 01/10/20 23:53 01/10/20 23:53 01/10/20 23:53 01/10/20 23:53 - Notes Notes: CONSTITUTIONAL [Vital signs reviewed, Patient appears uncomfortable.patient is tearful and persistently moaning alert and oriented X 3, Normal stature.] HEAD [Atraumatic, Normocephalic.] EYES [Eyes are normal to inspection, No discharge from eyes, Extraocular muscles intact, Sclera are normal, Conjunctiva are normal.] ENT Nose examination normal, Posterior pharynx normal, Mouth normal to inspection.] NECK Neck exam is notable for extreme trapezius muscle spasm along the back of the neck and sides of neck and extreme extension] RESPIRATORY CHEST [Chest is nontender, Breath sounds normal, No respiratory distress.] CARDIOVASCULAR [RRR, No murmurs, Normal S1 S2, No rub, No gallop.] ABDOMEN [Abdomen is nontender, No pulsatile masses, No other masses, Bowel sounds normal, No distension, No peritoneal signs, No hernias.] BACK [There is no CVA Tenderness, There is no tenderness to palpation, Normal inspection.] UPPER EXTREMITY [Inspection normal, No cyanosis, No clubbing, No edema, 2+ radial pulses.] LOWER EXTREMITY Lower extremities appear atrophic and slightly contracted NEURO [No focal motor deficits, No focal sensory deficits, Speech normal.] SKIN [Skin is warm, Skin is dry, Skin is normal color.] PSYCHIATRIC [Normal affect. ] Course - Re-evaluation Re-evalutation: 01/11/20 06:45 Woke patient from sleep to inform her that she would be discharged. Patient then started to moan and complain that she hurts. Chronic pain management policy at [facility] discussed with patient and patient given a copy of this. All questions were answered prior to discharge. Emergency signs and symptoms, reasons to return to the emergency department discussed with patient. - Vital Signs Vital signs: Temp Pulse Resp BP Pulse Ox 98.6 F 87 33 H 152/81 H 99 01/11/20 00:59 01/10/20 23:53 01/11/20 05:31 01/11/20 05:31 01/11/20 05:31 - Laboratory Result Diagrams: 01/10/20 22:41 01/10/20 22:41 Laboratory results interpreted by me: 01/10/20 01/10/20 01/11/20 22:41 22:41 00:45 WBC 15.3 H RDW 15.9 H Plt Count 630 H Lymph % (Auto) 5.5 L Absolute Neuts (auto) 14.0 H Seg Neutrophils % 91.0 H Creatinine 0.49 L Glucose 148 H Calcium 10.7 H ALT 54 H Alkaline Phosphatase 208 H Urine Protein 30 H Urine Ketones TRACE H Urine Blood MODERATE H Urine Nitrite POSITIVE H Ur Leukocyte Esterase MODERATE H Urine Ascorbic Acid 20 H Discharge - Discharge Clinical Impression: Chronic pain Qualifiers: Chronic pain type: other chronic pain Qualified Code(s): G89.29 - Other chronic pain UTI (urinary tract infection) Qualifiers: Hematuria presence: with hematuria Condition: Stable Disposition: HOME, SELF-CARE Instructions: Urinary Tract Infection ([facility]) Additional Instructions: Return to the Emergency Department without delay if any worse. HOME CARE INSTRUCTIONS & INFORMATION: Thank you for choosing us for your m edical needs. We hope you're satisfied with the care you received. After you leave, you must properly care for your problem and, at the same time, observe its progress. Any condition can change. Some illnesses can change rapidly over hours or days. If your condition worsens, return to the Emergency Department or see your physician promptly. ABOUT YOUR X-RAYS AND EKG'S: If you had an EKG or X-rays taken, they have been read by the Emergency Physician. The X-rays and EKG's will also be read by a Radiologist or Advertising Space Clerk within 24 hours. If discrepancies are noted, you will be notified by telephone. Please be certain the ED has a correct telephone number & address where you can be reached. Also, realize that some fractures or abnormalities do not show up on initial X-rays. If your symptoms continue, see your physician. ABOUT YOUR LABORATORY TEST: If you had laboratory tests, the results have been reviewed by the Emergency Physician. Some test results (for example cultures) may not be available for several days. You will be contacted if any test result shows you need additional treatment. Please be certain the ED has a correct telephone number and address where you can be reached. ABOUT YOUR MEDICATIONS: You will receive instructions on how to take your medicine on the prescription label you receive. Additional information may be provided by the Pharmacy. If you have questions afterwards, call the ED for clarification or further instructions. Some prescribed medications may cause drowsiness. Do not perform tasks such as driving a car or operating machinery without consulting your Pharmacist. If you feel you need a refill of pain medication, your condition will need re-evaluation. Please do not call for a refill of any medication. ABOUT YOUR SIGNATURE: Signature of this document acknowledges to followin. Understanding that you received emergency treatment and that you may be released before al medical problems are known or treated. Please be certain the ED has a correct phone number & address where you can be reached. 2. Acknowledgement that you will arrange for follow-up care as recommended. 3. Authorization for the Emergency Physician to provide information to your follow-up Physician in order to maximize your care. AT ANY TIME, IF YOUR SYMPTOMS CHANGE SIGNIFICANTLY OR WORSEN OR YOU DEVELOP NEW SYMPTOMS, RETURN TO THE EMERGENCY DEPARTMENT IMMEDIATELY FOR RE-EVALUATION. OUR GOAL IS TO PROVIDE EXCELLENT MEDICAL CARE! WE HOPE THAT WE HAVE MET YOUR EXPECTATIONS DURING YOUR EMERGENCY DEPARTMENT VISIT AND THAT YOU FEEL YOU HAVE RECEIVED EXCELLENT CARE! Chronic Pain Control Stress, inactivity, and depression make pain more severe regardless of the cause of the pain. Stress and poor physical condition can cause pain such as headaches and backache. Relaxation: Rest in a quiet place with your eyes closed for 20 minutes twice daily. Concentrate on a pleasant image, or simply "feel" your breathing. Clear your mind. Stress management: Deal with your "stressors." Either take action, or eliminate the stressor from your life. Don't let things hang over you. Accept those things you can't change. Nutrition: Eat small, balanced meals -- don't skip, don't overeat. Meals should be high-carbohydrate, low-sugar, low-fat. Exercise: Exercise helps painful conditions and eases stress. Get 30 minutes of moderate exercise, five days a week. Do an activity that does not flare your pain. Precautions: Pain which continues to disrupt daily activities, or which changes in nature, requires a medical evaluation. Pain Clinic referral is available. We do not manage chronic pain in the Emergency Department. We will try to appropriately help you through an acute flare of your chronic painful condition, but for on-going chronic pain that does not improve, you will need to see your private doctor or dip painter. We do not provide repeated medication management of chronic painful conditions. If you wish, we can provide the name of local pain management physicians. Prescriptions: Nitrofurantoin Monohyd/M-Cryst [Macrobid 100 mg Capsule] 100 mg PO BID 14 Days #28 cap Referrals: REJI LEIJA MD [Primary Care Provider] - Follow up as needed
[2020-01-11 06:59] VITALS: BP 122/50
== END 2020-01-11 07:10 | disposition home or self-care (01) ==
LOC: ER 20:46
DX: N39.0 Urinary tract infection, site not specified (principal); R31.9 Hematuria, unspecified; G89.29 Other chronic pain; M54.2 Cervicalgia; R51.9 Headache, unspecified; Q05.9 Spina bifida, unspecified; Z88.2 Allergy status to sulfonamides
CPT/HCPCS: 99283; 96361; 96375; 96365; 36415; 85025; 80053; 81001; J3360; J2270; J1170; J2405; J7030; J0696

== ENCOUNTER 2020-01-12 06:54 | Inpatient (IN) | payer MEDICARE ==
[2020-01-12] MEDS ORDERED: CEFTRIAXONE 1 GM/D5W RTU 1 GM/50 ML RTUPB IV ONE (07:25)
[2020-01-12 07:56] LABS: ABSOLUTE LYMPHOCYTES (AUTO) 1.1 10^3/uL (0.5-4.7); ABSOLUTE MONOCYTES (AUTO) 0.9 10^3/uL (0.1-1.4); ABSOLUTE NEUT (AUTO) 17.5 10^3/uL (1.7-8.2); BASOPHILS % (AUTO) 0.1 % (0-2); HEMATOCRIT 32.4 % (36.0-47.0); LYMPHOCYTES % (AUTO) 5.7 % (13-45); MEAN CORPUSCULAR HEMOGLOBIN 28.9 pg (27.0-33.4); MEAN CORPUSCULAR HGB CONC 34.2 g/dL (32.0-36.0); MEAN CORPUSCULAR VOLUME 85 fl (80-97); MONOCYTES % (AUTO) 4.5 % (3-13); PLATELET COUNT 485 10^3/uL (150-450); RED BLOOD COUNT 3.84 10^6/uL (3.72-5.28); RED CELL DISTRIBUTION WIDTH 16.3 % (11.5-14.0); SEGMENTED NEUTROPHILS % (AUTO) 89.7 % (42-78); TOTAL CELLS COUNTED % (AUTO) 100 %; WHITE BLOOD COUNT 19.6 10^3/uL (4.0-10.5)
[2020-01-12 08:02] LABS: HEMOGLOBIN 11.1 g/dL (12.0-15.5)
[2020-01-12 08:16] LABS: ALBUMIN 3.1 g/dL (3.5-5.0); ALKALINE PHOSPHATASE 128 U/L (38-126); ANION GAP 9 (5-19); ASPARTATE AMINO TRANSFERASE 17 U/L (14-36); BILIRUBIN,DIRECT 0.3 mg/dL (0.0-0.4); BILIRUBIN,TOTAL 0.7 mg/dL (0.2-1.3); BLOOD UREA NITROGEN 12 mg/dL (7-20); CALCIUM 10.2 mg/dL (8.4-10.2); CARBON DIOXIDE 30 mmol/L (22-30); CHLORIDE 100 mmol/L (98-107); CREATINE KINASE 29 U/L (30-135); GLUCOSE 162 mg/dL (75-110); POTASSIUM 3.8 mmol/L (3.6-5.0)
[2020-01-12 08:43] LABS: APPEARANCE,URINE CLEAR; BILIRUBIN,URINE NEGATIVE (NEGATIVE); COLOR,URINE YELLOW; GLUCOSE, URINE NEGATIVE (NEGATIVE); KETONES,URINE TRACE mg/dL (NEGATIVE); LEUKOCYTE ESTERASE,URINE NEGATIVE (NEGATIVE); NITRITE,URINE NEGATIVE (NEGATIVE); PROTEIN,URINE 30 mg/dL (NEGATIVE); URINE SPECIFIC GRAVITY 1.013; UROBILINOGEN,URINE NEGATIVE mg/dL (<2.0)
--- NOTE | 2020-01-12 09:35 | ER Document Report ---
Entered by DIANA GALAVIZ SCRIBE 01/12/20 0721 Acting as scribe for:DORIS MILLER MD ED General - General Stated Complaint: ALTERED MENTAL STATUS Time Seen by Provider: 01/12/20 07:10 Mode of Arrival: Medic Information source: Relative, Emergency Med Personnel, [facility] Records, Outside Facility Records Cannot obtain history due to: Altered mental status Notes: This 54 year old female patient presents to the emergency department today with complaints of being unresponsive this morning per . Patient was seen at [facility] on 01/08 for a headache and she was sent home on Fioricet, Phenergan, and a prednisone taper pack. She was seen at this facility the next day (01/09) and she was found to have a UTI with WBC of 15.3 with 91% segs, nitrite positive urine with too numerous to count WBCs, she was sent home on Macrobid. states this morning at around 3:00 AM he went to check on the patient and tried to give her her medication and she was "talking out of her head, wouldn't take the medicine, kept jaw shut and was grinding her teeth". TRAVEL OUTSIDE OF THE [place] IN LAST 30 DAYS: No - Related Data Allergies/Adverse Reactions: Sulfa (Sulfonamide Antibiotics) Allergy (Verified 07/02/16 06:35) Past Medical History - General Information source: Relative, [facility] Records Cannot obtain history due to: Altered mental status - Social History Smoking Status: Never Smoker Family History: None, Reviewed & Not Pertinent Neurological Medical History: Reports: Hx Migraine GI Medical History: Reports: Hx Gastroesophageal Reflux Disease Musculoskeletal Medical History: Reports Hx Musculoskeletal Deformity - Spina bifida Psychiatric Medical History: Reports: Hx Anxiety, Hx Depression Past Surgical History: Reports: Hx Cholecystectomy, Hx Neurologic Surgery - Spinal fusion, Hx Orthopedic Surgery - numerous back surgeries - Immunizations Immunizations up to date: Yes Hx Diphtheria, Pertussis, Tetanus Vaccination: Yes Review of Systems - Review of Systems -: Yes ROS unobtainable due to patient's medical condition Physical Exam - Vital signs Vitals: Temp 99.5 F 01/12/20 06:54 - Notes Notes: Physical Exam: General: Shivering, mumbled speech, cries out when touched by nursing staff. HEENT: Normocephalic. Atraumatic. PERRL. Extraocular movements intact. Oropharynx clear. Grinds teeth throughout exam. Neck: Supple. Non-tender. Respiratory: No respiratory distress. Clear and equal breath sounds bilaterally. Cardiovascular: Regular rate and rhythm. Abdominal: Normal Inspection. Non-tender. No distension. Normal Bowel Sounds. Back: No gross abnormalities. Extremities: Moves all four extremities. Upper extremities: Normal inspection. Normal ROM. Lower extremities: Normal inspection. No edema. Normal ROM. Neurological: Mumbled speech Skin: Hot to the touch. Dry. Normal color. Course - Re-evaluation Re-evalutation: 01/12/20 09:41 The nurse just informed me that the patient vomited a large amount of coffee- ground appearing liquid. Gastroccult test was positive. Digital rectal exam produced a mucousy stool which was possibly trace heme positive but not grossly positive. The patient's hemoglobin yesterday was 13.8, today is 11.1. White blood cell count absolute neutrophil count has gone from 14.0 yesterday to 17.5 today Chem-12 is unchanged. Urinalysis yesterday was nitrite positive with TNTC WBCs. At this time we will start Protonix 80 mg IV, and type and screen the patient. 01/12/20 10:46 Patient is more alert now and smiling. She still moans and groans but does try to form some words. Her spouse reports that she is now interacting with him and is not back to normal, but is much better than she was earlier. Medicine for pain management depression so 3 days ago she used emergency room in [place] with her migraine headache and they added Fioricet and the Phenergan and a prednisone taper dose on the she came in here on the late at night discharged on the and found to have a urinary tract infection and was put on Macrodantin the urine was not cultured when she was here on the it almost 11:00 at night white count was 15,300 with 91 segs so and her urine was too numerous to count WBCs nitrite positive so she went home this more about 3 in the morning her says she does grind her teeth and talking out of her head she came in here also like about 7:00 and she was just, encephalopathic active of first lab work her white count up to 19,600 with 90 segs her hemoglobin is dropped from 13 8-11.1 01/13/20 07:37 I did accompany the patient to the CT scanner to get a CT-guided lumbar puncture. We had to give the patient Ativan 0.5 mg IV twice to get her agitation controlled enough to safely do the lumbar puncture. Due to the patient's spina bifida and previous surgeries, x-rays showed that it would be very difficult to do a fluoroscopic lumbar puncture. The CT scan of her back showed 1 small area that a needle could be passed so this approach was used to obtain a spinal fluid. Fluid was hazy yellow and grossly consistent with meningitis. - Vital Signs Vital signs: Temp Pulse Resp BP Pulse Ox 100.6 F H 124 H 25 H 155/94 H 95 01/13/20 03:49 01/13/20 03:49 01/13/20 03:49 01/13/20 03:49 01/13/20 03:49 - Laboratory Result Diagrams: 01/12/20 07:07 01/12/20 07:07 Laboratory results interpreted by me: 01/12/20 01/12/20 01/12/20 07:07 07:07 08:14 WBC 19.6 H Hgb 11.1 L D Hct 32.4 L RDW 16.3 H Plt Count 485 H Lymph % (Auto) 5.7 L Absolute Neuts (auto) 17.5 H Seg Neutrophils % 89.7 H Glucose 162 H Alkaline Phosphatase 128 H Creatine Kinase 29 L Total Protein 6.0 L Albumin 3.1 L Urine Protein 30 H Urine Ketones TRACE H Urine Blood SMALL H - Diagnostic Test Radiology reviewed: Image reviewed, Reports reviewed - Chest x-ray shows ill- defined patchy opacifications in both lungs which suggest an infectious or inflammatory process. No focal consolidation noted. - EKG Interpretation by Me EKG shows normal: Sinus rhythm, Kellogg, Intervals, QRS Complexes, ST-T Waves Rate: Tachycardia - 116 Critical Care Note - Critical Care Note Total time excluding time spent on procedures (mins): 45 Comments: At least 45 minutes spent evaluating the patient, talking with the spouse, reviewing records from previous visit, multiple reevaluations as the clinical picture evolved with the patient's mental status changes, then vomiting up coffee-ground emesis. Time spent discussing the case with the hospitalist. I also went with the patient to the CT scanner to monitor administration of sedatives to keep her agitation controlled to allow a safe CT-guided lumbar puncture. Discharge - Discharge Clinical Impression: Upper GI bleed, Opacities of both lungs present on chest x-ray, Meningitis Altered mental status Qualifiers: Altered mental status type: unspecified Qualified Code(s): R41.82 - Altered mental status, unspecified Leukocytosis Qualifiers: Leukocytosis type: unspecified Qualified Code(s): D72.829 - Elevated white blood cell count, unspecified Fever Qualifiers: Fever type: unspecified Qualified Code(s): R50.9 - Fever, unspecified Chronic pain Qualifiers: Chronic pain type: chronic pain syndrome Qualified Code(s): G89.4 - Chronic pain syndrome Condition: Good Disposition: ADMITTED INPATIENT Admitting Provider: Mariposa (Hospitalist) Unit Admitted: Medical Floor I personally performed the services described in the documentation, reviewed and edited the documentation which was dictated to the scribe in my presence, and it accurately records my words and actions.
[2020-01-12] MEDS ORDERED: PANTOPRAZOLE SODIUM 40 MG VIAL IV PRN (09:40)
[2020-01-12] MEDS ORDERED: PANTOPRAZOLE SODIUM 40 MG VIAL IV ONE ×2 (10:09→10:27)
[2020-01-12 10:22] LABS: URINE AMPHETAMINES SCREEN NEGATIVE; URINE COCAINE SCREEN NEGATIVE; URINE MARIJUANA (THC) SCREEN NEGATIVE; URINE METHADONE SCREEN NEGATIVE; URINE PHENCYCLIDINE SCREEN NEGATIVE
[2020-01-12 10:24] LABS: URINE BENZODIAZEPINES SCREEN UNCONFIRMED POSITIVE
[2020-01-12 10:25] LABS: URINE BARBITURATES SCREEN UNCONFIRMED POSITIVE
--- NOTE | 2020-01-12 11:35 | RADIOLOGY REPORT (SQ) ---
EXAM DESCRIPTION: CT HEAD WITHOUT IMAGES COMPLETED DATE/TIME: 01/12/2020 11:26 am REASON FOR STUDY: Altered mental status COMPARISON: None. TECHNIQUE: Axial images acquired through the brain without intravenous contrast. Images reviewed wi th bone, brain and subdural windows. Additional sagittal and coronal reconstructions were generated. Images stored on PACS. All CT scanners at this facility use dose modulation, iterative reconstruction, and/or weight based d osing when appropriate to reduce radiation dose to as low as reasonably achievable (ALARA). [facility]: Dose Right [facility]: CareDose [facility]: Dose Right [facility]: Teradose 4D [facility]: [place] RADIATION DOSE: CT Rad equipment meets quality standard of care and radiation dose reduction techniq ues were employed. CTDIvol: 55.2 mGy. DLP: 1029 mGy-cm. mGy. LIMITATIONS: None. FINDINGS: VENTRICLES: Normal size and contour. CEREBRUM: No masses. No hemorrhage. No midline shift. No evidence for acute infarction. Normal gra y/white matter differentiation. No areas of low density in the white matter. CEREBELLUM: No masses. No hemorrhage. No alteration of density. No evidence for acute infarction. EXTRAAXIAL SPACES: No fluid collections. No masses. ORBITS AND GLOBE: No intra- or extraconal masses. Normal contour of globe without masses. CALVARIUM: No fracture. PARANASAL SINUSES: No fluid or mucosal thickening. SOFT TISSUES: No mass or hematoma. OTHER: No other significant finding. IMPRESSION: NORMAL BRAIN CT WITHOUT CONTRAST. EVIDENCE OF ACUTE STROKE: NO. COMMENT: Quality ID # [id number]: Final reports with documentation of one or more dose reduction techniques (e.g., Automated exposure control, adjustment of the mA and/or kV according to patient size, use of iterative reconstruction technique) TECHNICAL DOCUMENTATION: JOB ID: [id number] 2010 [employer]- All Rights Reserved Reading location - IP/workstation name: [email or web address]
--- NOTE | 2020-01-12 12:03 | RADIOLOGY REPORT (SQ) ---
EXAM DESCRIPTION: CHEST SINGLE VIEW IMAGES COMPLETED DATE/TIME: 01/12/2020 10:44 am REASON FOR STUDY: Altered mental status, coffee-ground emesis COMPARISON: 07/02/2016 EXAM PARAMETERS: NUMBER OF VIEWS: One view. TECHNIQUE: Single frontal radiographic view of the chest acquired. RADIATION DOSE: NA LIMITATIONS: None. FINDINGS: LUNGS AND PLEURA: There are patchy ill-defined opacities in both lungs. Low lung volumes. No pleural effusion or pneumothorax. MEDIASTINUM AND HILAR STRUCTURES: Prominence of the mediastinum secondary to AP technique and rotatio n. HEART AND VASCULAR STRUCTURES: Heart is prominent secondary to AP technique and rotation. No pulmona ry vascular congestion. BONES: Rotary scoliotic curvature. Spinal fixation hardware and fusion, stable. HARDWARE: None in the chest. OTHER: No other significant finding. IMPRESSION: Ill-defined patchy opacities in both lungs suggestive of infectious/ inflammatory proces s. No focal confluent consolidation. TECHNICAL DOCUMENTATION: JOB ID: [id number] 2010 [employer]- All Rights Reserved Reading location - IP/workstation name: [email or web address]
[2020-01-12] MEDS ORDERED: DEXTROSE 5%-LACTATED RINGERS 1,000 ML IV PRN (14:21)
[2020-01-12] MEDS ORDERED: IPRATROPIUM/ALBUTEROL 0.5-2.5 MG/3 ML AMPUL NEB PRN (14:21)
[2020-01-12] MEDS ORDERED: VANCOMYCIN HCL 0 MG in DEXTROSE 5%-WATER 250 ML IV NR (14:30)
[2020-01-12] MEDS ORDERED: LORAZEPAM INJ 2 MG/1 ML VIAL IV ONE (15:44)
[2020-01-12] MEDS ORDERED: VANCOMYCIN HCL INJ 500 MG VIAL ONE (17:16)
[2020-01-12] MEDS: VANCOMYCIN HCL 500 MG in DEXTROSE 5%-WATER 100 ML IV SCH ×2 (17:20→21:56)
--- NOTE | 2020-01-12 17:39 | RADIOLOGY REPORT (SQ) ---
EXAM DESCRIPTION: CT CHEST WITH IMAGES COMPLETED DATE/TIME: 01/12/2020 4:18 pm REASON FOR STUDY: abnormal chest XR. Altered mental status. Coffee ground emesis. Chest radiograph demonstrated ill-defined patchy opacities suggestive of infectious/ inflammatory process. Further e valuation. COMPARISON: Chest radiograph same date. TECHNIQUE: CT scan of the chest performed using helical scanning technique with dynamic intravenous contrast injection. Images reviewed with lung, soft tissue and bone windows. Reconstructed coronal and sagittal MPR and MIP images reviewed. All images stored on PACS. All CT scanners at this facility use dose modulation, iterative reconstruction, and/or weight based d osing when appropriate to reduce radiation dose to as low as reasonably achievable (ALARA). [facility]: Dose Right [facility]: CareDose [facility]: Dose Right [facility]: Teradose 4D [facility]: idiag CONTRAST TYPE AND DOSE: contrast/concentration: Isovue 350.00 mmol/ml; Total Contrast Delivered: 80. 0 ml; Total Saline Delivered: 48.9 ml RENAL FUNCTION: GFR > 60. RADIATION DOSE: CT Rad equipment meets quality standard of care and radiation dose reduction techniq ues were employed. CTDIvol: 15.6 mGy. DLP: 576 mGy-cm. . LIMITATIONS: Respiratory motion obscures detail. FINDINGS: LUNGS AND PLEURA: Respiratory motion obscures detail. The trachea has normal caliber and appearance. There is atelectasis at the lung bases bilaterally. No focal confluent consolidation. No pleural effusion or pneumothorax. HILAR AND MEDIASTINAL STRUCTURES: Small hiatal hernia. No mediastinal adenopathy. HEART AND VASCULAR STRUCTURES: No aneurysm or dissection. No central pulmonary emboli. No pericardi al effusion. HARDWARE: None in the chest. UPPER ABDOMEN: Mild hepatic steatosis. Too small to characterize hepatic lesions likely small hepati c cysts. 9 mm enhancing lesion in the right hepatic lobe probably a flash filling hemangioma. No simon spicious hepatic mass. Hepatic and portal veins are patent. Small splenic cyst peripherally. Bilat eral renal cysts. Spina bifida is noted. THYROID AND OTHER SOFT TISSUES: No masses. No adenopathy. BONES: Spina bifida and rotary scoliotic curvature of the thoracolumbar spine. OTHER: No other significant finding. IMPRESSION: 1. Atelectasis at the lung bases with no focal confluent consolidation. 2. Too small to characterize hepatic lesions likely hepatic cysts or small hemangiomas. TECHNICAL DOCUMENTATION: JOB ID: [id number] Quality ID # [id number]: Final reports with documentation of one or more dose reduction techniques (e.g., Au tomated exposure control, adjustment of the mA and/or kV according to patient size, use of iterative reconstruction technique) 2010 [employer]- All Rights Reserved Reading location - IP/workstation name: [email or web address]
[2020-01-12 17:57] LABS: APPEARANCE ALL TUBES HAZY; COLOR ALL TUBES YELLOW; VOLUME TUBE 1 0.5 CC
[2020-01-12 17:58] LABS: VOLUME TUBE 2 1.5 CC
[2020-01-12 17:59] LABS: RED BLOOD CELL,CSF 55 /uL (0-10)
[2020-01-12 18:00] LABS: WHITE BLOOD CELL,CSF 3925 /uL (0-5)
[2020-01-12] MEDS ORDERED: AMPICILLIN SOD/SULBACTAM 1.5 GM VIAL IV SCH (18:00)
[2020-01-12 18:02] LABS: GLUCOSE,CSF < 20 mg/dL (40-70)
[2020-01-12 18:03] LABS: MONONUCLEAR CELLS CSF 2 %; POLYMORPHONUCLEAR CELLS CSF 98 %
[2020-01-12 18:04] LABS: CSF TUBE NUMBER 3
[2020-01-12 18:05] LABS: PROTEIN,CSF 1727 mg/dL (12-60)
--- NOTE | 2020-01-12 18:40 | PDOC H&P ---
History of Present Illness Admission Date/PCP: 01/12/20 14:21 REJI LEIJA MD Patient complains of: altered mental status History of Present Illness: KINZA KEANE I is a 54 year old female, past medical history of spina bifida, migraine who was brought in by EMS due to altered mental status. Patient started to experience headache about 3 days prior to admission. She was seen [facility] for the headache and was prescribed Fioricet, Phenergan, prednisone taper for migraine. Upon speaking to her her headache was not her usual migraine headaches. She came to [facility] January 09 due to headache and was found to have a UTI, with positive nitrite, increased WBC in the urine. Patient was sent home on Macrobid. At around 3 AM this morning her tried to give her her medications when he noticed that she was clenching her jaw shut, grinding her teeth and could not recognize him and was very confused. She also apparently had episodes of hematemesis in the emergency room. Emergency room, blood pressure 150/87, heart rate of 106, temperature 99.5. CBC showed WBC count of 19.6, hemoglobin of 11.1, platelet count 485. CMP showed normal creatinine, normal electrolytes, normal ammonia. Urinalysis no nitrites no leukocytes. She was given 1 dose of IV ceftriaxone. CT scan of the head was negative. When I examined her in the emergency room, she was minimally verbal, with periods of restlessness confusion. She exhibits nuchal rigidity. Lumbar puncture was done per IR which showed cloudy, yellow CSF, CSF WBC 3925, glucose less than 20, CSF protein 1727 which are consistent with bacterial meningitis. Vancomycin and ampicillin added on top of ceftriaxone. She was subsequently admitted for further management. Past Medical History Cardiac Medical History: Reports: None Pulmonary Medical History: Reports: None EENT Medical History: Reports: None Neurological Medical History: Reports: Migraine, Other - spina bifida Endocrine Medical History: Reports: None Renal/ Medical History: Reports: None Malignancy Medical History: Reports: None GI Medical History: Reports: None, Gastroesophageal Reflux Disease Musculoskeltal Medical History: Reports: None Skin Medical History: Reports: None Psychiatric Medical History: Reports: Depression Hematology: Reports: None Infectious Medical History: Reports: None Past Surgical History Past Surgical History: Reports: Cholecystectomy, Orthopedic Surgery - numerous back surgeries Social History Information Source: Patient Lives with: Spouse/Significant other Smoking Status: Never Smoker Hx Recreational Drug Use: No Family History Family History: None, Reviewed & Not Pertinent Parental Family History Reviewed: Yes Children Family History Reviewed: Yes Sibling(s) Family History Reviewed.: Yes Medication/Allergy Home Medications: Alprazolam [Xanax 0.5 mg Tablet] 0.5 mg PO QIDP PRN 01/12/20 Benzonatate [Tessalon Perles 100 mg Capsule] 200 mg PO TIDP PRN 01/12/20 Butalb/Acetaminophen/Caffeine [Fioricet (50-325-40 mg) Tablet] 1 tab PO Q8HP PRN 01/12/20 Gabapentin [Neurontin 300 mg Capsule] 1,200 mg PO QHS 01/12/20 Gabapentin [Neurontin 300 mg Capsule] 600 mg PO NOON 01/12/20 Gabapentin [Neurontin 300 mg Capsule] 600 mg PO QAM 01/12/20 Hydrocodone/Acetaminophen [[place] 7.5-325 mg Tablet] 1 tab PO NOON 01/12/20 Hydrocodone/Acetaminophen [[place] 7.5-325 mg Tablet] 1 tab PO QAM 01/12/20 Hydrocodone/Acetaminophen [[place] 7.5-325 mg Tablet] 1 tab PO QPM 01/12/20 Hydrocodone/Acetaminophen [[place] 7.5-325 mg Tablet] 2 tab PO HSP PRN 01/12/20 Nitrofurantoin Monohyd/M-Cryst [Macrobid 100 mg Capsule] 100 mg PO BID 01/12/20 Prednisone [Deltasone 10 mg Tablet] 10 mg PO .TAPER DOSING 01/12/20 Promethazine HCl [Phenergan 25 mg Tablet] 25 mg PO Q4HP PRN 01/12/20 Allergies/Adverse Reactions: Sulfa (Sulfonamide Antibiotics) Allergy (Verified 07/02/16 06:35) Review of Systems ROS unobtainable: Due to mental status Physical Exam Vital Signs: Temp Pulse Resp BP Pulse Ox 99.5 F 25 H 156/95 H 99 01/12/20 07:19 01/12/20 17:41 01/12/20 17:41 01/12/20 17:41 Intake & Output 01/11/20 01/12/20 01/13/20 06:59 06:59 06:59 Intake Total 50 Output Total 1300 Balance -1250 Weight 49.895 kg General appearance: PRESENT: no acute distress Head exam: PRESENT: atraumatic, normocephalic Eye exam: PRESENT: EOMI, PERRLA Ear exam: PRESENT: normal external ear exam Mouth exam: PRESENT: moist Neck exam: PRESENT: meningismus, other - +ve nuchal rigidity Respiratory exam: PRESENT: clear to auscultation nolberto, symmetrical. ABSENT: rales, unlabored Cardiovascular exam: PRESENT: RRR, +S1, +S2 Pulses: PRESENT: +2 pedal pulses bilateral GI/Abdominal exam: PRESENT: normal bowel sounds, soft. ABSENT: rebound, tenderness Extremities exam: PRESENT: full ROM Musculoskeletal exam: PRESENT: full ROM Neurological exam: PRESENT: other - Altered mental status, does not follow command. Psychiatric exam: PRESENT: agitated Skin exam: PRESENT: normal color Results Laboratory Results: 01/12/20 07:07 01/12/20 07:07 01/12/20 01/12/20 01/12/20 07:07 07:07 08:14 WBC 19.6 H RBC 3.84 Hgb 11.1 L D Hct 32.4 L MCV 85 MCH 28.9 MCHC 34.2 RDW 16.3 H Plt Count 485 H Seg Neutrophils % 89.7 H Sodium 138.8 Potassium 3.8 Chloride 100 Carbon Dioxide 30 Anion Gap 9 BUN 12 Creatinine 0.54 Est GFR ( Amer) > 60 Glucose 162 H Calcium 10.2 Magnesium 1.9 Total Bilirubin 0.7 AST 17 Alkaline Phosphatase 128 H Ammonia Total Protein 6.0 L Albumin 3.1 L TSH Urine Color YELLOW Urine Appearance CLEAR Urine pH 6.0 Ur Specific [place] 1.013 Urine Protein 30 H Urine Glucose (UA) NEGATIVE Urine Ketones TRACE H Urine Blood SMALL H Urine Nitrite NEGATIVE Ur Leukocyte Esterase NEGATIVE Urine WBC (Auto) 4 Urine RBC (Auto) 2 Fluid Tube Number Fluid Glucose CSF Volume CSF Appearance CSF Color CSF WBC CSF RBC CSF Polymorphonuclear CSF Glucose CSF Total Protein Blood Type Antibody Screen 01/12/20 01/12/20 01/12/20 10:21 15:20 15:20 WBC RBC Hgb Hct MCV MCH MCHC RDW Plt Count Seg Neutrophils % Sodium Potassium Chloride Carbon Dioxide Anion Gap BUN Creatinine Est GFR ( Amer) Glucose Calcium Magnesium Total Bilirubin AST Alkaline Phosphatase Ammonia < 8.7 L Total Protein Albumin TSH 0.31 L Urine Color Urine Appearance Urine pH Ur Specific [place] Urine Protein Urine Glucose (UA) Urine Ketones Urine Blood Urine Nitrite Ur Leukocyte Esterase Urine WBC (Auto) Urine RBC (Auto) Fluid Tube Number Fluid Glucose CSF Volume CSF Appearance CSF Color CSF WBC CSF RBC CSF Polymorphonuclear CSF Glucose CSF Total Protein Blood Type A POSITIVE Antibody Screen NEGATIVE 01/12/20 01/12/20 01/12/20 16:43 16:43 16:43 WBC RBC Hgb Hct MCV MCH MCHC RDW Plt Count Seg Neutrophils % Sodium Potassium Chloride Carbon Dioxide Anion Gap BUN Creatinine Est GFR ( Amer) Glucose Calcium Magnesium Total Bilirubin AST Alkaline Phosphatase Ammonia Total Protein Albumin TSH Urine Color Urine Appearance Urine pH Ur Specific [place] Urine Protein Urine Glucose (UA) Urine Ketones Urine Blood Urine Nitrite Ur Leukocyte Esterase Urine WBC (Auto) Urine RBC (Auto) Fluid Tube Number 3 Fluid Glucose Cancelled CSF Volume 7.0 CSF Appearance HAZY CSF Color YELLOW CSF WBC 3925 H CSF RBC 55 CSF Polymorphonuclear 98 CSF Glucose < 20 L CSF Total Protein 1727 H Blood Type Antibody Screen 01/12/20 01/12/20 01/12/20 07:07 07:07 15:20 Creatine Kinase 29 L 80 Troponin I 0.052 Impressions: Chest CT 01/12/20 00:00 IMPRESSION: 1. Atelectasis at the lung bases with no focal confluent consolidation. 2. Too small to characterize hepatic lesions likely hepatic cysts or small hem angiomas. Head CT 01/12/20 10:58 IMPRESSION: NORMAL BRAIN CT WITHOUT CONTRAST. EVIDENCE OF ACUTE STROKE: NO. Chest X-Ray 01/12/20 11:00 IMPRESSION: Ill-defined patchy opacities in both lungs suggestive of infectious/ inflammatory process. No focal confluent consolidation. Assessment and Plan - Diagnosis (1) Meningitis Is this a current diagnosis for this admission?: Yes Plan: - came in due to AMS, fever, has worsening headache and photophobia 3 days prior - being treated for UTI - +ve confusion, +ve nuchal rigidity - WBC 19.6 neutrophil predominant - s/p LP with CSF cloudy and yellowish in appearance - will start ceftri+vanc+ampi for empiric abx will de-escalate once CSF culture and sensitivity are out - will start acyclovir till PCR result - was not given dexa because abx has already been given several hours after LP (2) Acute encephalopathy Is this a current diagnosis for this admission?: Yes Plan: - came in with AMS, fever, headache - Hx of migraine -CT head negative -electrolytes within range -LP and CSF analysis pointing towards meningitis or encephalitis as a cause of encephalopathy -Started on empiric antibiotics. -We will continue to monitor (3) Upper GI bleed Is this a current diagnosis for this admission?: Yes Plan: -Patient had one episode of coffee-ground emesis in the ED -Digital rectal exam heme positive -Hemoglobin 1.1 from 13.8 -Hemodynamically stable -We will keep n.p.o. -Ordered on Protonix -Repeat hemoglobin tomorrow no indication for blood transfusion or emergent EGD for now -Continue IV fluids -Type and screen ordered (4) UTI (urinary tract infection) Qualifiers: Hematuria presence: with hematuria Is this a current diagnosis for this admission?: Yes Plan: -Diagnosed 2 days prior with positive nitrite and leukocyte in the UA -Needed with Macrobid in the ED -Patient is currently on ceftriaxone for suspected meningitis which should cover her UTI as well (5) Fever Qualifiers: Fever type: unspecified Qualified Code(s): R50.9 - Fever, unspecified Is this a current diagnosis for this admission?: Yes Plan: -Likely secondary to ongoing infection -On appropriate antibiotics (6) Spina bifida Qualifiers: Presence of hydrocephalus: without hydrocephalus Is this a current diagnosis for this admission?: Yes - Time Time Spent with patient: 35 or more minutes Anticipated Discharge Disposition: Home, Self Care Anticipated Discharge Timeframe: to be determined - Inpatient Certification Based on my medical assessment, after consideration of the patient's comorbidities, presenting symptoms, or acuity I expect that the services needed warrant INPATIENT care.: Yes I certify that my determination is in accordance with my understanding of Medicare's requirements for reasonable and necessary INPATIENT services [42 CFR 412.3e].: Yes Medical Necessity: Need for IV Antibiotics
[2020-01-12] MEDS: AMPICILLIN SODIUM 2 GM in NORMAL SALINE 100 ML IV SCH ×2 (19:41→21:02)
--- NOTE | 2020-01-12 19:47 | EKG REPORT ---
SEVERITY:- OTHERWISE NORMAL ECG - SINUS TACHYCARDIA : Confirmed by: Jolanta Goddard 12-Jan-2020 19:46:34
[2020-01-12] MEDS: PANTOPRAZOLE SODIUM 40 MG VIAL IV SCH (20:13)
[2020-01-12] MEDS: DEXTROSE 5%-LACTATED RINGERS 1,000 ML IV PRN (20:18)
[2020-01-12] MEDS: ACETAMINOPHEN 650 MG SUPP.RECT PR PRN (20:55)
[2020-01-12] MEDS ORDERED: CHLORPROMAZINE HCL INJ 25 MG/1 ML AMPULE IV PRN (21:33)
[2020-01-12] MEDS ORDERED: DIAZEPAM INJ 10 MG/2 ML DISP.SYRIN IV PRN (21:33)
[2020-01-12] MEDS ORDERED: DIAZEPAM 5 MG TABLET PO SCH (21:45)
[2020-01-12] MEDS ORDERED: ACYCLOVIR SODIUM INJ/PF 500 MG/10 ML SDV IV ONE (22:12)
[2020-01-12] MEDS: ACYCLOVIR SODIUM 500 MG in NORMAL SALINE 100 ML IV SCH (22:22)
[2020-01-12] MEDS: HEPARIN SOD (PORCINE) 5,000 UNIT/ML 1 ML VIAL SUBCUT SCH (22:22)
[2020-01-13] MEDS: AMPICILLIN SODIUM 2 GM in NORMAL SALINE 100 ML IV SCH ×7 (00:33→23:57)
[2020-01-13] MEDS: DEXTROSE 5%-LACTATED RINGERS 1,000 ML IV PRN (04:24)
[2020-01-13] MEDS: HEPARIN SOD (PORCINE) 5,000 UNIT/ML 1 ML VIAL SUBCUT SCH ×3 (06:57→22:21)
[2020-01-13] MEDS: ACYCLOVIR SODIUM 500 MG in NORMAL SALINE 100 ML IV SCH ×3 (06:58→22:03)
[2020-01-13 07:32] LABS: HEMOGLOBIN 10.8 g/dL (12.0-15.5); MEAN CORPUSCULAR HEMOGLOBIN 28.7 pg (27.0-33.4); MEAN CORPUSCULAR HGB CONC 33.6 g/dL (32.0-36.0); MEAN CORPUSCULAR VOLUME 86 fl (80-97); PLATELET COUNT 498 10^3/uL (150-450); RED BLOOD COUNT 3.75 10^6/uL (3.72-5.28); WHITE BLOOD COUNT 18.7 10^3/uL (4.0-10.5)
[2020-01-13 07:45] LABS: ALBUMIN 3.3 g/dL (3.5-5.0); ALKALINE PHOSPHATASE 129 U/L (38-126); ANION GAP 8 (5-19); ASPARTATE AMINO TRANSFERASE 24 U/L (14-36); BILIRUBIN,DIRECT 0.3 mg/dL (0.0-0.4); BILIRUBIN,TOTAL 0.7 mg/dL (0.2-1.3); BLOOD UREA NITROGEN 6 mg/dL (7-20); CALCIUM 9.5 mg/dL (8.4-10.2); CARBON DIOXIDE 32 mmol/L (22-30); CHLORIDE 101 mmol/L (98-107); GLUCOSE 185 mg/dL (75-110); POTASSIUM 3.2 mmol/L (3.6-5.0); TOTAL PROTEIN 6.9 g/dL (6.3-8.2)
[2020-01-13 08:21] LABS: ABSOLUTE LYMPHOCYTES# (MANUAL) 0.9 10^3/uL (0.5-4.7); ABSOLUTE MONOCYTES # (MANUAL) 0.7 10^3/uL (0.1-1.4); BASOPHILS % (MANUAL) 0 % (0-2); EOSINOPHILS % (MANUAL) 0 % (0-6); LYMPHOCYTES % (MANUAL) 5 % (13-45); MONOCYTES % (MANUAL) 4 % (3-13); SEGMENTED NEUTROPHILS % (MAN) 91 % (42-78); TOTAL CELLS COUNTED 100
[2020-01-13 08:22] LABS: ANISOCYTOSIS SLIGHT; PLATELET COMMENT INCREASED; POLYCHROMASIA SLIGHT; TOXIC VACUOLATION PRESENT
[2020-01-13] MEDS: ACETAMINOPHEN 650 MG SUPP.RECT PR PRN (08:52)
[2020-01-13] MEDS ORDERED: CEFTRIAXONE 2 GM/D5W RTU 2 GM/50 ML RTUPB IV SCH ×2 (10:00→12:00)
--- NOTE | 2020-01-13 10:00 | RADIOLOGY REPORT (SQ) ---
EXAM DESCRIPTION: CT LUMBAR PUNCTURE IMAGES COMPLETED DATE/TIME: 01/12/2020 5:07 pm REASON FOR STUDY: Encephalopathic COMPARISON: None. FLUOROSCOPY TIME: Seconds 1 images saved to PACS. TECHNIQUE: CT guided lumbar puncture. LIMITATIONS: Spina bifida. PROCEDURE: After written consent and assessment were obtained, the patient was brought into the CT s uite and placed in a right lateral position on the table. The patient's lower back was prepped in a sterile fashion and an entry site was selected under CT guidance. The entry site was anesthetized wit h 1% lidocaine. A 20 gauge needle was advanced through the skin and into the thecal sac at the lower lumbar region. After approximately 7 ml was drained, the needle was removed and a sterile bandage wa s placed of the site. Specimens were sent to the lab for testing. CT images were saved to PACS conf irming level of access. FINDINGS: Cloudy yellow CSF IMPRESSION: Lumbar puncture under CT guidance. No immediate complication. COMMENT: Patient medication list reviewed: Yes- Quality ID# [id number]:Eligible professional attests to doc umenting in the medical record they obtained, updated, or reviewed the patient's current medications. . Quality ID 145: Final reports for procedures using fluoroscopy that document radiation exposure brad ti, or exposure time and number of fluorographic images (if radiation exposure indices are not avail able) TECHNICAL DOCUMENTATION: JOB ID: [id number] 2010 [employer]- All Rights Reserved Reading location - IP/workstation name: [email or web address]
[2020-01-13] MEDS ORDERED: ADENOSINE INJ/PF 6 MG/2 ML SDV IV ONE (11:42)
[2020-01-13] MEDS ORDERED: METOPROLOL TARTRATE PF/INJ 5 MG/5 ML SDV IV ONE ×4 (11:48→23:45)
[2020-01-13] MEDS: PANTOPRAZOLE SODIUM 40 MG VIAL IV SCH ×2 (11:57→18:27)
[2020-01-13] MEDS: POTASSI CL 20 MEQ/50 ML RIDER 20 MEQ/50 ML RTUPB IV SCH ×3 (11:59→18:24)
[2020-01-13] MEDS: VANCOMYCIN HCL 500 MG in DEXTROSE 5%-WATER 100 ML IV SCH ×2 (13:46→22:04)
--- NOTE | 2020-01-13 13:58 | NEURO WORKBENCH EEG REPORT ---
EEG Report Patient: Katy Luther ID: [id number] Referring Doctor: Christin Monge DOS: 01/13/2020 Medications: Acyclovir, rocephin, heparin, protonix, vancomycin History This is a 54 year old female with a history of spina bifida, spinal fusion, migraine, GERD, cholecystectomy, depression, anxiety, chronic back pain and surgeries admitted with acute encephalopathy and UTI. This EEG was requested for altered mental status. EEG Interpretation This EEG was recorded in the awake state only. The EEG was affected by artifact throughout the recording with only brief periods of readable EEG. The awake EEG is characterized by a disorganized background without a noted posterior dominant rhythm. The remainder of the background was characterized by a combination of primarily theta and delta activity with some alpha and beta frequencies. There were noted sharply contoured waveforms periodically with an anterior to posterior gradient consistent with triphasic waves. There was an asymmetry in the background with an attenuation on the left, most noted in the central regions compared to the right. Photic stimulation resulted in no significant changes. There were no epileptiform abnormalities. The EKG channel was impaired by artifact with periods of tachycardia noted. EEG Classification * Triphasic waves * Generalized background slowing * Asymmetry, left attenuation, central * EKG tachycardia * Technically poor study EEG Impression This EEG is abnormal. It is consistent with diffuse cerebral dysfunction of nonspecific etiology including brain lesions or encephalopathies such as metabolic encephalopathies (e.g. renal or hepatic). The left attenuation may be seen with a structural lesion; correlation with neuroimaging may be of interest. This was a technically poor study that impaired interpretation. INTERPRETING NEUROLOGIST: Margareth Henriquez MD, FRCPC Board Certified in Neurology, with special qualification in Child Neurology, and in Clinical Neurophysiology [facility]
[2020-01-13] MEDS ORDERED: POTASSI CL 20 MEQ/50 ML RIDER 0 MEQ/0 ML RTUPB IV ONE (18:17)
[2020-01-13] MEDS ORDERED: POTASSI CL 20 MEQ/50 ML RIDER 20 MEQ/50 ML RTUPB IV ONE (18:18)
[2020-01-13] MEDS ORDERED: METOPROLOL TARTRATE PF/INJ 5 MG/5 ML SDV IV PRN (19:00)
--- NOTE | 2020-01-13 19:20 | PDOC PROGRESS REPORT ---
Subjective Progress Note for:: 01/13/20 Subjective:: KINZA KEANE I is a 54 year old female, past medical history of spina bifida, migraine who was brought in by EMS due to altered mental status. Patient started to experience headache about 3 days prior to admission. She was seen at [facility] 01/08 for the headache and was prescribed Fioricet, Phenergan, prednisone taper for migraine. Upon speaking to her her headache was not her usual migraine headaches. She came to [facility] January 09 due to headache and was found to have a UTI, with positive nitrite, increased WBC in the urine. Patient was sent home on Macrobid. At around 3 AM this morning her tried to give her her medications when he noticed that she was clenching her jaw shut, grinding her teeth and could not recognize him and was very confused. She also apparently had episodes of hematemesis in the emergency room. Emergency room, blood pressure 150/87, heart rate of 106, temperature 99.5. CBC showed WBC count of 19.6, hemoglobin of 11.1, platelet count 485. CMP showed normal creatinine, normal electrolytes, normal ammonia. Urinalysis no nitrites no leukocytes. She was given 1 dose of IV ceftriaxone. CT scan of the head was negative. When I examined her in the emergency room, she was minimally verbal, with periods of restlessness confusion. She exhibits nuchal rigidity. Lumbar puncture was done per IR which showed cloudy, yellow CSF, CSF WBC 3925, glucose less than 20, CSF protein 1727 which are consistent with bacterial meningitis. Vancomycin and ampicillin added on top of ceftriaxone. She was subsequently admitted for further management. 01/13/20 D2 Hospital stay. She was seen and examined at bedside. She is still not talking and not following commands, but open eyes spontaneously. She is still spiking fever Tmax 103. Preliminary CSF result gram stain no bacteria seen. blood culture and urine culture negative 24 hrs. Of note, CSF sample was taken >4 hrs after receiving 1 dose of ceftriaxone. ID consulted. I was able to speak to her about her diagnosis. Ceftriaxone switched to cefepime. Reason For Visit: ACUTE ENCEPHALOPATHY, UTI Physical Exam Vital Signs: Temp Pulse Resp BP Pulse Ox 97.4 F 147 H 36 H 116/82 86 L 01/13/20 12:34 01/13/20 14:00 01/13/20 12:34 01/13/20 12:34 01/13/20 12:34 Intake & Output 01/12/20 01/13/20 01/14/20 06:59 06:59 06:59 Intake Total 1350 200 Output Total 1300 Balance 50 200 Weight 49.895 kg 58 kg General appearance: PRESENT: thin Head exam: PRESENT: atraumatic, normocephalic Eye exam: PRESENT: EOMI, PERRLA Ear exam: PRESENT: normal external ear exam Mouth exam: PRESENT: moist Neck exam: PRESENT: meningismus Respiratory exam: PRESENT: clear to auscultation nolberto, symmetrical, unlabored Cardiovascular exam: PRESENT: +S1, tachycardia Pulses: PRESENT: +2 pedal pulses bilateral GI/Abdominal exam: PRESENT: normal bowel sounds, soft. ABSENT: rebound, tenderness Extremities exam: ABSENT: +2 edema Musculoskeletal exam: PRESENT: full ROM - minimally verbal and altered likely due to infection Skin exam: PRESENT: normal color Results Laboratory Results: 01/13/20 06:47 01/13/20 06:47 01/13/20 01/13/20 06:47 06:47 WBC 18.7 H RBC 3.75 Hgb 10.8 L Hct 32.0 L MCV 86 MCH 28.7 MCHC 33.6 RDW 16.0 H Plt Count 498 H Seg Neutrophils % Not Reportable Sodium 141.4 Potassium 3.2 L Chloride 101 Carbon Dioxide 32 H Anion Gap 8 BUN 6 L Creatinine 0.46 L Est GFR ( Amer) > 60 Glucose 185 H Calcium 9.5 Total Bilirubin 0.7 AST 24 Alkaline Phosphatase 129 H Total Protein 6.9 Albumin 3.3 L 01/12/20 01/12/20 01/12/20 07:07 07:07 15:20 Creatine Kinase 29 L 80 Troponin I 0.052 01/12/20 20:55 Creatine Kinase Troponin I 0.052 Impressions: Chest CT 01/12/20 00:00 IMPRESSION: 1. Atelectasis at the lung bases with no focal confluent consolidation. 2. Too small to characterize hepatic lesions likely hepatic cysts or small hemangiomas. Lumbar Puncture CT 01/12/20 00:00 IMPRESSION: Lumbar puncture under CT guidance. No immediate complication. Head CT 01/12/20 10:58 IMPRESSION: NORMAL BRAIN CT WITHOUT CONTRAST. EVIDENCE OF ACUTE STROKE: NO. Chest X-Ray 01/12/20 11:00 IMPRESSION: Ill-defined patchy opacities in both lungs suggestive of infectious/ inflammatory process. No focal confluent consolidation. Assessment and Plan - Diagnosis (1) Meningitis Is this a current diagnosis for this admission?: Yes Plan: - came in due to AMS, fever, has worsening headache and photophobia 3 days prior - being treated for UTI - +ve confusion, +ve nuchal rigidity - WBC 19.6>18.7 neutrophil predominant - s/p LP with CSF cloudy and yellowish in appearance - prelim gram stain no bacteria, blood and urine culture negative in 24 hrs - ceftri switched to cefepime due to continued fever, continue vanc and ampi - on acyclovir - ID consulted appreciate recs - was not given dexa because abx has already been given several hours after LP (2) Acute encephalopathy Is this a current diagnosis for this admission?: Yes Plan: - came in with AMS, fever, headache - Hx of migraine -CT head negative - EEG unrevealing for epileptic focus -electrolytes within range -LP and CSF analysis pointing towards meningitis or encephalitis as a cause of encephalopathy -Started on empiric antibiotics. -We will continue to monitor (3) Upper GI bleed Is this a current diagnosis for this admission?: Yes Plan: -Patient had one episode of coffee-ground emesis in the ED -Digital rectal exam heme positive -Hemoglobin 11>10.8 from 13.8 -Hemodynamically stable -We will keep n.p.o. -Ordered on Protonix -Repeat hemoglobin tomorrow no indication for blood transfusion or emergent EGD for now -Continue IV fluids -Type and screen ordered (4) UTI (urinary tract infection) Qualifiers: Hematuria presence: with hematuria Is this a current diagnosis for this admission?: Yes Plan: -Diagnosed 2 days prior with positive nitrite and leukocyte in the UA -Needed with Macrobid in the ED -Patient is currently on cefepime for suspected meningitis which should cover her UTI as well (5) Fever Qualifiers: Fever type: unspecified Qualified Code(s): R50.9 - Fever, unspecified Is this a current diagnosis for this admission?: Yes Plan: -Likely secondary to ongoing infection - blood culture negative x 24 hrs -On appropriate antibiotics (6) Spina bifida Qualifiers: Presence of hydrocephalus: without hydrocephalus Is this a current diagnosis for this admission?: Yes - Time Time Spent with patient: 35 or more minutes Anticipated Discharge Disposition: Home, Self Care Anticipated Discharge Timeframe: to be determined
[2020-01-13] MEDS ORDERED: CEFEPIME 2 GM/D5W RTU 2 GM/50 ML RTUPB IV SCH (22:00)
--- NOTE | 2020-01-13 22:06 | EKG REPORT ---
SEVERITY:- ABNORMAL ECG - SINUS TACHYCARDIA RIGHT AXIS DEVIATION ST DEPRESSION, PROBABLY RATE RELATED : Confirmed by: Jolanta Goddard 13-Jan-2020 22:05:27
[2020-01-13] MEDS: CEFEPIME HCL 2 GM in DEXTROSE 5%-WATER 50 ML IV SCH (23:56)
[2020-01-14] MEDS: DEXTROSE 5%-LACTATED RINGERS 1,000 ML IV PRN (04:16)
[2020-01-14] MEDS: ACETAMINOPHEN 650 MG SUPP.RECT PR PRN (04:17)
[2020-01-14] MEDS: AMPICILLIN SODIUM 2 GM in NORMAL SALINE 100 ML IV SCH ×4 (04:17→17:29)
[2020-01-14] MEDS: METOPROLOL TARTRATE PF/INJ 5 MG/5 ML SDV IV PRN ×2 (04:18→20:22)
[2020-01-14] MEDS: ACYCLOVIR SODIUM 500 MG in NORMAL SALINE 100 ML IV SCH ×2 (05:34→16:11)
[2020-01-14] MEDS: HEPARIN SOD (PORCINE) 5,000 UNIT/ML 1 ML VIAL SUBCUT SCH ×3 (05:34→21:35)
[2020-01-14] MEDS ORDERED: PHARMACY COMMUNICATION ORDER MC NR (09:00)
--- NOTE | 2020-01-14 10:17 | RADIOLOGY REPORT (SQ) ---
EXAM DESCRIPTION: KUB/ABDOMEN (SINGLE VIEW) IMAGES COMPLETED DATE/TIME: 01/14/2020 9:53 am REASON FOR STUDY: Check Placement of NG Tube COMPARISON: 07/02/2016. NUMBER OF VIEWS: One view. TECHNIQUE: Supine radiographic image of the abdomen acquired. LIMITATIONS: None. FINDINGS: BOWEL GAS PATTERN: Normal bowel gas pattern. No dilated loops. CALCIFICATIONS: No suspicious calcifications. SOFT TISSUES: No gross mass or suggestion of organomegaly. HARDWARE: Nasogastric tube, tip in the stomach. Surgical clips in the abdomen. Hardware in the spin e. BONES: No acute fracture. Chronic changes in the spine with scoliosis. No worrisome bone lesions. OTHER: Distended contrast filled bladder. IMPRESSION: 1. NASOGASTRIC TUBE, TIP IN THE STOMACH. 2. DISTENDED CONTRAST FILLED BLADDER. CORRELATE WITH ANY POSSIBILITY OF BLADDER OUTLET OBSTRUCTION. TECHNICAL DOCUMENTATION: JOB ID: [id number] 2010 [employer]- All Rights Reserved Reading location - IP/workstation name: [email or web address]
[2020-01-14] MEDS ORDERED: MANNITOL 25% INJ 12.5 GM/50 ML VIAL IV ONE (10:56)
--- NOTE | 2020-01-14 11:33 | RADIOLOGY REPORT (SQ) ---
EXAM DESCRIPTION: CT HEAD WITHOUT IMAGES COMPLETED DATE/TIME: 01/14/2020 11:16 am REASON FOR STUDY: altered mental status COMPARISON: 01/12/2020. TECHNIQUE: Axial images acquired through the brain without intravenous contrast. Images reviewed wi th bone, brain and subdural windows. Additional sagittal and coronal reconstructions were generated. Images stored on PACS. All CT scanners at this facility use dose modulation, iterative reconstruction, and/or weight based d osing when appropriate to reduce radiation dose to as low as reasonably achievable (ALARA). [facility]: Dose Right [facility]: CareDose [facility]: Dose Right [facility]: Teradose 4D [facility]: Covelus RADIATION DOSE: CT Rad equipment meets quality standard of care and radiation dose reduction techniq ues were employed. CTDIvol: 53.2 mGy. DLP: 1044 mGy-cm. mGy. LIMITATIONS: None. FINDINGS: VENTRICLES: Normal size and contour. CEREBRUM: No masses. No hemorrhage. No midline shift. No evidence for acute infarction. Normal gra y/white matter differentiation. No areas of low density in the white matter. CEREBELLUM: No masses. No hemorrhage. No alteration of density. No evidence for acute infarction. EXTRAAXIAL SPACES: No fluid collections. No masses. ORBITS AND GLOBE: No intra- or extraconal masses. Normal contour of globe without masses. CALVARIUM: No fracture. PARANASAL SINUSES: No fluid or mucosal thickening. SOFT TISSUES: No mass or hematoma. OTHER: No other significant finding. IMPRESSION: NORMAL BRAIN CT WITHOUT CONTRAST. EVIDENCE OF ACUTE STROKE: NO. COMMENT: Quality ID # [id number]: Final reports with documentation of one or more dose reduction techniques (e.g., Automated exposure control, adjustment of the mA and/or kV according to patient size, use of iterative reconstruction technique) TECHNICAL DOCUMENTATION: JOB ID: [id number] 2010 [employer]- All Rights Reserved Reading location - IP/workstation name: [email or web address]
[2020-01-14] MEDS ORDERED: MANNITOL IV ONE (12:00)
[2020-01-14 12:34] LABS: ARTERIAL BLOOD BASE EXCESS 4.4 mmol/L; ARTERIAL BLOOD HCO3 27.7 mmol/L (20-24); ARTERIAL BLOOD O2 SATURATION 93.8 % (94-98); ARTERIAL BLOOD PCO2 36.7 mmHg (35-45); ARTERIAL BLOOD PO2 62.6 mmHg (80-100); ARTERIAL BLOOD TOTAL CO2 28.8 mmol/L (21-25)
[2020-01-14 12:59] LABS: ARTERIAL BLOOD FIO2 36%
--- NOTE | 2020-01-14 13:23 | RADIOLOGY REPORT (SQ) ---
EXAM DESCRIPTION: CHEST SINGLE VIEW IMAGES COMPLETED DATE/TIME: 01/14/2020 1:14 pm REASON FOR STUDY: MENINGITIS COMPARISON: 01/12/2020. EXAM PARAMETERS: NUMBER OF VIEWS: One view. TECHNIQUE: Single frontal radiographic view of the chest acquired. RADIATION DOSE: NA LIMITATIONS: None. FINDINGS: LUNGS AND PLEURA: Increasing consolidation in the left lung. Patchy densities in the righ t lung, particularly the right lower lobe. MEDIASTINUM AND HILAR STRUCTURES: No masses. Contour normal. HEART AND VASCULAR STRUCTURES: Heart normal in size. Normal vasculature. BONES: No acute findings. Chronic changes in the spine. HARDWARE: Nasogastric tube, tip in the stomach. Spinal hardware. OTHER: No other significant finding. IMPRESSION: BILATERAL AIRSPACE DISEASE WITH INCREASING CONSOLIDATION IN THE LEFT LUNG WORRISOME FOR PNEUMONIA. TECHNICAL DOCUMENTATION: JOB ID: [id number] 2010 [employer]- All Rights Reserved Reading location - IP/workstation name: [email or web address]
[2020-01-14 13:26] LABS: HEMATOCRIT 31.1 % (36.0-47.0); HEMOGLOBIN 10.7 g/dL (12.0-15.5); MEAN CORPUSCULAR HEMOGLOBIN 29.8 pg (27.0-33.4); MEAN CORPUSCULAR HGB CONC 34.3 g/dL (32.0-36.0); MEAN CORPUSCULAR VOLUME 87 fl (80-97); PLATELET COUNT 552 10^3/uL (150-450); RED BLOOD COUNT 3.58 10^6/uL (3.72-5.28); RED CELL DISTRIBUTION WIDTH 16.2 % (11.5-14.0); WHITE BLOOD COUNT 18.8 10^3/uL (4.0-10.5)
[2020-01-14 13:48] LABS: ALBUMIN 3.1 g/dL (3.5-5.0); ALKALINE PHOSPHATASE 114 U/L (38-126); ANION GAP 11 (5-19); ASPARTATE AMINO TRANSFERASE 63 U/L (14-36); BILIRUBIN,DIRECT 0.4 mg/dL (0.0-0.4); BILIRUBIN,TOTAL 0.6 mg/dL (0.2-1.3); BLOOD UREA NITROGEN 15 mg/dL (7-20); CALCIUM 9.4 mg/dL (8.4-10.2); CARBON DIOXIDE 29 mmol/L (22-30); CHLORIDE 108 mmol/L (98-107); GLUCOSE 144 mg/dL (75-110); POTASSIUM 4.4 mmol/L (3.6-5.0); TOTAL PROTEIN 6.3 g/dL (6.3-8.2)
[2020-01-14 14:02] LABS: ABSOLUTE LYMPHOCYTES# (MANUAL) 2.4 10^3/uL (0.5-4.7); ABSOLUTE MONOCYTES # (MANUAL) 0.4 10^3/uL (0.1-1.4); BASOPHILS % (MANUAL) 0 % (0-2); EOSINOPHILS % (MANUAL) 0 % (0-6); LYMPHOCYTES % (MANUAL) 13 % (13-45); MONOCYTES % (MANUAL) 2 % (3-13); SEGMENTED NEUTROPHILS % (MAN) 85 % (42-78); TOTAL CELLS COUNTED 100
[2020-01-14 14:04] LABS: ANISOCYTOSIS 1+; POLYCHROMASIA SLIGHT
[2020-01-14 14:05] LABS: HYPOCHROMASIA SLIGHT; PLATELET COMMENT INCREASED; PLATELET LARGE PRESENT
--- NOTE | 2020-01-14 15:08 | RADIOLOGY REPORT (SQ) ---
EXAM DESCRIPTION: PICC INSERTION IMAGES COMPLETED DATE/TIME: 01/14/2020 2:43 pm REASON FOR STUDY: Poor marco access COMPARISON: None. FLUOROSCOPY TIME: 31 seconds 1 images saved to PACS. TECHNIQUE: Fluoroscopic and ultrasound guided PICC placement. LIMITATIONS: None. PROCEDURE: After written consent and assessment were obtained, the patient was brought into the fluo roscopy room and placed supine on the table. Ultrasound evaluation of potential access sites were per formed. After successfully identifying a patent left upper arm basilic vein, the left arm was prepped and draped in a sterile fashion along with the ultrasound probe. The entry site was anesthetized wit h 1% lidocaine. A 21 gauge 7 cm needle was advanced through the skin and into the basilic vein under live ultrasound guidance. An ultrasound image was saved to PACS confirming access site. A .018 guid e wire was then inserted through the needle and into the venous system. The needle was then removed a nd an 11 blade scalpel was used to make a 1cm skin incision. A 5 fr peel-away sheath was advanced ov er the wire and into the venous system. A measurement was then made using the existing wire and live fluoroscopic guidance. The wire was then removed and trimmed. The PICC was advanced through the peel- away sheath and into the venous system. The peel-away sheath was removed and the catheter was adhered to the patients arm with a stat lock. The catheter was then aspirated and flushed and a sterile band age was placed over the access site. A fluoroscopic spot image was saved to PACS confirming the cath eter tip within the SVC. IMPRESSION: SUCCESSFUL PLACEMENT OF A 5 FR DUAL LUMEN 39 CM PICC IN THE LEFT BASILIC VEIN. COMMENT: Patient medication list reviewed: Yes- Quality ID# 130:Eligible professional attests to doc umenting in the medical record they obtained, updated, or reviewed the patient's current medications. . Quality ID 145: Final reports for procedures using fluoroscopy that document radiation exposure brad ti, or exposure time and number of fluorographic images (if radiation exposure indices are not avail able) Quality ID #76: The patient was prepped and draped using maximum sterile barrier technique including cap, mask, sterile gown, sterile gloves, a large sterile sheet, hand hygiene, and 2% Chlorhexidine fo r cutaneous antisepsis. When ultrasound is used, sterile ultrasound techniques are followed requiring sterile gel and sterile probes. TECHNICAL DOCUMENTATION: JOB ID: [id number] 2010 [employer]- All Rights Reserved rev-08/16 Reading location - IP/workstation name: [email or web address]
--- NOTE | 2020-01-14 15:21 | RADIOLOGY REPORT (SQ) ---
EXAM DESCRIPTION: MRI HEAD WITHOUT IMAGES COMPLETED DATE/TIME: 01/14/2020 3:08 pm REASON FOR STUDY: acute encephalopathy COMPARISON: None. TECHNIQUE: Multiplanar imaging includes non-contrasted T1, T2, FLAIR, and diffusion with ADC map seq uences. Images stored on PACS. LIMITATIONS: None. FINDINGS: ANATOMY: No anomalies. Normal vascular flow voids. Pituitary fossa normal. CSF SPACES: Normal in size and contour. No hemorrhage. CEREBRUM: Sulci and gyri normal in size and contour. Normal white matter signal on FLAIR imaging. No evidence of hemorrhage, mass, or extraaxial fluid collection. POSTERIOR FOSSA: No signal alteration. No hemorrhage. No edema, masses or mass effect. Internal amrit tory canals, cerebello-pontine angles, mastoids normal. DIFFUSION IMAGING: Negative for acute or sub-acute infarction. ORBITS: No masses. Globes normal. PARANASAL SINUSES: No fluid levels. Mucosa normal. OTHER: No other significant finding. IMPRESSION: NORMAL MRI OF THE BRAIN WITHOUT INTRAVENOUS GADOLINIUM CONTRAST. EVIDENCE OF ACUTE STROKE: NO. TECHNICAL DOCUMENTATION: JOB ID: [id number] 2010 [employer]- All Rights Reserved Reading location - IP/workstation name: [email or web address]
[2020-01-14] MEDS: VANCOMYCIN HCL 500 MG in DEXTROSE 5%-WATER 100 ML IV SCH (16:11)
[2020-01-14] MEDS: CEFEPIME HCL 2 GM in DEXTROSE 5%-WATER 50 ML IV SCH (16:12)
[2020-01-14] MEDS: PANTOPRAZOLE SODIUM 40 MG VIAL IV SCH ×2 (17:14→17:37)
--- NOTE | 2020-01-14 17:44 | Progress Note ---
Provider Note Provider Note: [facility] Telephone Advice Consultation Chart reviewed. Patient not examined. Patient is a 54-year-old woman with history of spina bifida and migraines who started presenting headache on 01/08. She initially went to [facility]. It was thought to be migraines for which she received phenergan, fioricet and prednisone taper. Next day her symptoms worsened and she presented altered mental status. She was taken to the ED and she was initially found with low grade fever, tachycardia. She was found with pyuria and was given nitrofurantoin and was sent home. She returned to the hospital with altered mental status and nuchal rigidity. A lumbar puncture was done in the ED. WBC 3,925; Glucose <20, protein 1,727. She had leukocytosis of 19k on admission. She was started on vancomcyin, cefepime, ampicillin. Acyclovir was added. She kept spiking fever of 102, 103. Ceftriaxone was changed to cefepime when CSF Gram stain was positive for a GNR. She still has significant leukocytosis and fever is slowly coming down. Mental status still impaired per notes. ID consulted for recommendations. Allergies: Sulfa (Sulfonamide Antibiotics) Allergy (Verified 07/02/16 06:35) Medications: Alprazolam [Xanax 0.5 mg Tablet] 0.5 mg PO QIDP PRN 01/12/20 Benzonatate [Tessalon Perles 100 mg Capsule] 200 mg PO TIDP PRN 01/12/20 Butalb/Acetaminophen/Caffeine [Fioricet (50-325-40 mg) Tablet] 1 tab PO Q8HP PRN 01/12/20 Gabapentin [Neurontin 300 mg Capsule] 1,200 mg PO QHS 01/12/20 Gabapentin [Neurontin 300 mg Capsule] 600 mg PO NOON 01/12/20 Gabapentin [Neurontin 300 mg Capsule] 600 mg PO QAM 01/12/20 Hydrocodone/Acetaminophen [[place] 7.5-325 mg Tablet] 1 tab PO NOON 01/12/20 Hydrocodone/Acetaminophen [[place] 7.5-325 mg Tablet] 1 tab PO QAM 01/12/20 Hydrocodone/Acetaminophen [[place] 7.5-325 mg Tablet] 1 tab PO QPM 01/12/20 Hydrocodone/Acetaminophen [[place] 7.5-325 mg Tablet] 2 tab PO HSP PRN 01/12/20 Nitrofurantoin Monohyd/M-Cryst [Macrobid 100 mg Capsule] 100 mg PO BID 01/12/20 Prednisone [Deltasone 10 mg Tablet] 10 mg PO .TAPER DOSING 01/12/20 Promethazine HCl [Phenergan 25 mg Tablet] 25 mg PO Q4HP PRN 01/12/20 Vital Signs: Temp Pulse Resp BP Pulse Ox 98.9 F 121 H 48 H 134/87 H 97 01/14/20 08:00 01/14/20 08:00 01/14/20 08:00 01/14/20 08:00 01/14/20 08:00 Intake & Output 01/13/20 01/14/20 01/15/20 06:59 06:59 06:59 Intake Total 1350 1650 Output Total 1300 Balance 50 1650 Weight 58 kg 59.7 kg 59.7 kg Weight/Height Weight 59.7 kg Height 5 ft Laboratories: 01/14/20 12:38 01/14/20 12:38 MCV 87 fl (80-97) 01/14/20 12:38 MCH 29.8 pg (27.0-33.4) 01/14/20 12:38 MCHC 34.3 g/dL (32.0-36.0) 01/14/20 12:38 RDW 16.2 % (11.5-14.0) H 01/14/20 12:38 Seg Neutrophils % Not Reportable 01/14/20 12:38 Carbonic Acid 1.10 mmol/L (1.05-1.35) 01/14/20 12:10 HCO3/H2CO3 Ratio 25:1 01/14/20 12:10 ABG pH 7.50 (7.35-7.45) H 01/14/20 12:10 ABG pCO2 36.7 mmHg (35-45) 01/14/20 12:10 ABG pO2 62.6 mmHg (80-100) L 01/14/20 12:10 ABG HCO3 27.7 mmol/L (20-24) H 01/14/20 12:10 ABG O2 Saturation 93.8 % (94-98) L 01/14/20 12:10 ABG Base Excess 4.4 mmol/L 01/14/20 12:10 FiO2 36% 01/14/20 12:10 Chloride 108 mmol/L (98-107) H 01/14/20 12:38 Carbon Dioxide 29 mmol/L (22-30) 01/14/20 12:38 Anion Gap 11 (5-19) 01/14/20 12:38 Est GFR ( Amer) > 60 (>60) 01/14/20 12:38 Glucose 144 mg/dL (75-110) H 01/14/20 12:38 Calcium 9.4 mg/dL (8.4-10.2) 01/14/20 12:38 Magnesium 1.9 mg/dL (1.6-2.3) 01/12/20 07:07 Total Bilirubin 0.6 mg/dL (0.2-1.3) 01/14/20 12:38 AST 63 U/L (14-36) H 01/14/20 12:38 Alkaline Phosphatase 114 U/L (38-126) 01/14/20 12:38 Ammonia < 8.7 umol/L (9-33) L 01/12/20 15: Total Protein 6.3 g/dL (6.3-8.2) 01/14/20 12:38 Albumin 3.1 g/dL (3.5-5.0) L 01/14/20 12:38 TSH 0.31 uIU/mL (0.47-4.68) L 01/12/20 15:20 Urine Color YELLOW 01/12/20 08:14 Urine Appearance CLEAR 01/12/20 08:14 Urine pH 6.0 (5.0-9.0) 01/12/20 08:14 Ur Specific [place] 1.013 01/12/20 08:14 Urine Protein 30 mg/dL (NEGATIVE) H 01/12/20 08:14 Urine Glucose (UA) NEGATIVE mg/dL (NEGATIVE) 01/12/20 08:14 Urine Ketones TRACE mg/dL (NEGATIVE) H 01/12/20 08:14 Urine Blood SMALL (NEGATIVE) H 01/12/20 08:14 Urine Nitrite NEGATIVE (NEGATIVE) 01/12/20 08:14 Ur Leukocyte Esterase NEGATIVE (NEGATIVE) 01/12/20 08:14 Urine WBC (Auto) 4 /HPF 01/12/20 08:14 Urine RBC (Auto) 2 /HPF 01/12/20 08:14 Fluid Tube Number 3 01/12/20 16:43 Fluid Glucose Cancelled 01/12/20 16:43 CSF Volume 7.0 CC 01/12/20 16:43 CSF Appearance HAZY 01/12/20 16:43 CSF Color YELLOW 01/12/20 16:43 CSF WBC 3925 /uL (0-5) H 01/12/20 16:43 CSF RBC 55 /uL (0-10) 01/12/20 16:43 CSF Polymorphonuclear 98 % 01/12/20 16:43 CSF Glucose < 20 mg/dL (40-70) L 01/12/20 16:43 CSF Total Protein 1727 mg/dL (12-60) H 01/12/20 16:43 Blood Type A POSITIVE 01/12/20 10: Antibody Screen NEGATIVE 01/12/20 10:21 01/12/20 08:14 Catheterized Urine Urine Culture - Final NO GROWTH 2 DAYS 01/12/20 01/12/20 01/12/20 07:07 07:07 15:20 Creatine Kinase 29 L 80 Troponin I 0.052 01/12/20 20:55 Creatine Kinase Troponin I 0.052 Microbiology: Blood culture NGTD CSF culture GNR 3 colonies Radiology: Chest CT 01/12/20 00:00 IMPRESSION: 1. Atelectasis at the lung bases with no focal confluent consolidation. 2. Too small to characterize hepatic lesions likely hepatic cysts or small hemangiomas. Lumbar Puncture CT 01/12/20 00:00 IMPRESSION: Lumbar puncture under CT guidance. No immediate complication. Chest X-Ray 01/14/20 00:00 IMPRESSION: BILATERAL AIRSPACE DISEASE WITH INCREASING CONSOLIDATION IN THE LEFT LUNG WORRISOME FOR PNEUMONIA. Head CT 01/14/20 00:00 IMPRESSION: NORMAL BRAIN CT WITHOUT CONTRAST. EVIDENCE OF ACUTE STROKE: NO. Head MRI 01/14/20 00:00 IMPRESSION: NORMAL MRI OF THE BRAIN WITHOUT INTRAVENOUS GADOLINIUM CONTRAST. EVIDENCE OF ACUTE STROKE: NO. PICC Line Insertion 01/14/20 00:00 IMPRESSION: SUCCESSFUL PLACEMENT OF A 5 FR DUAL LUMEN 39 CM PICC IN THE LEFT BASILIC VEIN. KUB X-Ray 01/14/20 08:46 IMPRESSION: 1. NASOGASTRIC TUBE, TIP IN THE STOMACH. 2. DISTENDED CONTRAST FILLED BLADDER. CORRELATE WITH ANY POSSIBILITY OF BLADDER OUTLET OBSTRUCTION. Assessment and Recommendations: Patient evaluated for bacterial meningitis and possible aspiration pneumonia now. She has been on broad spectrum antibiotics and acyclovir. She is acutely ill, still febrile and with significant leukocytosis. Gram negative rods seen on Gram stain. GNR meningitis is usually associated to trauma, procedures. This could be Pseudomonas, E coli, Haemophilus, Moraxella. Treatment options include cefepime 2g iv every 8 hr +/- Gentamicin 2mg/kg first dose then 1.7 mg/kg every 8 hr OR Meropenem 2g iv every 8 hr (over 4 hr infusion). Can discont inue ampicillin, vancomycin and acyclovir. Duration will be 21 days. Samantha Yen MD [facility] ID [phone]
[2020-01-14] MEDS ORDERED: GENTAMICIN SULFATE 0 MG in DEXTROSE 5%-WATER 100 ML IV NR (18:00)
--- NOTE | 2020-01-14 18:13 | PDOC PROGRESS REPORT ---
Subjective Progress Note for:: 01/14/20 Subjective:: KINZA KEANE I is a 54 year old female, past medical history of spina bifida, migraine who was brought in by EMS due to altered mental status. Patient started to experience headache about 3 days prior to admission. She was seen at [facility] 01/08 for the headache and was prescribed Fioricet, Phenergan, prednisone taper for migraine. Upon speaking to her her headache was not her usual migraine headaches. She came to [facility] January 09 due to headache and was found to have a UTI, with positive nitrite, increased WBC in the urine. Patient was sent home on Macrobid. At around 3 AM this morning her tried to give her her medications when he noticed that she was clenching her jaw shut, grinding her teeth and could not recognize him and was very confused. She also apparently had episodes of hematemesis in the emergency room. Emergency room, blood pressure 150/87, heart rate of 106, temperature 99.5. CBC showed WBC count of 19.6, hemoglobin of 11.1, platelet count 485. CMP showed normal creatinine, normal electrolytes, normal ammonia. Urinalysis no nitrites no leukocytes. She was given 1 dose of IV ceftriaxone. CT scan of the head was negative. When I examined her in the emergency room, she was minimally verbal, with periods of restlessness confusion. She exhibits nuchal rigidity. Lumbar puncture was done per IR which showed cloudy, yellow CSF, CSF WBC 3925, glucose less than 20, CSF protein 1727 which are consistent with bacterial meningitis. Vancomycin and ampicillin added on top of ceftriaxone. She was subsequently admitted for further management. 01/13/20 D2 Hospital stay. She was seen and examined at bedside. She is still not talking and not following commands, but open eyes spontaneously. She is still spiking fever Tmax 103. Preliminary CSF result gram stain no bacteria seen. blood culture and urine culture negative 24 hrs. Of note, CSF sample was taken >4 hrs after receiving 1 dose of ceftriaxone. ID consulted. I was able to speak to her about her diagnosis. Ceftriaxone switched to cefepime. 01/14/20 D3 Hospital stay. She was seen and examined at bedside. She is still very altered and she was noted to have episodes of hyperventilation and 5 seconds of apnea. Her pupils are equal but sluggishly reactive. I asked Dr. De Leon to assess her unfortunately he is unable to take her down to ICU due to bed availability. Repeat CT head showed no acute findings. CSF culture prel iminary showed growth of gram negative rods. Her abx was switched to cefepime since yesterday, still on ampicillin, vanc and acyclovir. Infectious disease was consulted who recommended to add gentamycin to cefepime or switch to meropenem. I reached out to [facility] for possible transfer but they are unfortunately at capacity. I was able to discuss her case with Dr. Cuba Hummel because I was concer anali about increased ICP and wanted his opinion regarding mannitol or 3% saline. He recommended against it unless there are clear signs she's herniating like anisocoria, obtundation, or CT head shows edema. I spoke to [facility] who is at capacity as well. I reached out to [facility] and was able to speak to a neurologist Dr. Kan who accepted her. However due to unavailability of bed in the ICU she will be put on a wait list until she gets a bed. Reason For Visit: ACUTE ENCEPHALOPATHY, UTI Physical Exam Vital Signs: Temp Pulse Resp BP Pulse Ox 98.9 F 121 H 48 H 134/87 H 97 01/14/20 08:00 01/14/20 08:00 01/14/20 08:00 01/14/20 08:00 01/14/20 08:00 Intake & Output 01/13/20 01/14/20 01/15/20 06:59 06:59 06:59 Intake Total 1350 1650 1100 Output Total 1300 Balance 50 1650 1100 Weight 58 kg 59.7 kg 59.7 kg General appearance: PRESENT: other - moderate distress, altered Head exam: PRESENT: atraumatic, normocephalic Eye exam: PRESENT: EOMI, other - pupils 3-4 mm sluggishly reactive to light Mouth exam: PRESENT: moist Neck exam: PRESENT: meningismus Respiratory exam: PRESENT: clear to auscultation nolberto, symmetrical, other - periods of hyperventilation and apnea of 5 seconds Cardiovascular exam: PRESENT: +S1, +S2, tachycardia Pulses: PRESENT: +2 pedal pulses bilateral GI/Abdominal exam: PRESENT: normal bowel sounds, soft. ABSENT: rebound, tenderness Extremities exam: ABSENT: clubbing, joint swelling Neurological exam: PRESENT: other - does not follow command so neuro exam very limited, pupils 3-4 mmsluggishly reactive to light, +ve neck rigidity Results Laboratory Results: 01/14/20 12:38 01/14/20 12:38 01/14/20 01/14/20 01/14/20 12:10 12:38 12:38 WBC 18.8 H RBC 3.58 L Hgb 10.7 L Hct 31.1 L MCV 87 MCH 29.8 MCHC 34.3 RDW 16.2 H Plt Count 552 H Seg Neutrophils % Not Reportable Carbonic Acid 1.10 HCO3/H2CO3 Ratio 25:1 ABG pH 7.50 H ABG pCO2 36.7 ABG pO2 62.6 L ABG HCO3 27.7 H ABG O2 Saturation 93.8 L ABG Base Excess 4.4 FiO2 36% Sodium 148.3 H Potassium 4.4 Chloride 108 H Carbon Dioxide 29 Anion Gap 11 BUN 15 Creatinine 0.67 Est GFR ( Amer) > 60 Glucose 144 H Calcium 9.4 Total Bilirubin 0.6 AST 63 H Alkaline Phosphatase 114 Total Protein 6.3 Albumin 3.1 L 01/12/20 08:14 Catheterized Urine Urine Culture - Final NO GROWTH 2 DAYS 01/12/20 01/12/20 01/12/20 07:07 07:07 15:20 Creatine Kinase 29 L 80 Troponin I 0.052 01/12/20 20:55 Creatine Kinase Troponin I 0.052 Impressions: Chest CT 01/12/20 00:00 IMPRESSION: 1. Atelectasis at the lung bases with no focal confluent consolidation. 2. Too small to characterize hepatic lesions likely hepatic cysts or small hemangiomas. Lumbar Puncture CT 01/12/20 00:00 IMPRESSION: Lumbar puncture under CT guidance. No immediate complication. Chest X-Ray 01/14/20 00:00 IMPRESSION: BILATERAL AIRSPACE DISEASE WITH INCREASING CONSOLIDATION IN THE LEFT LUNG WORRISOME FOR PNEUMONIA. Head CT 01/14/20 00:00 IMPRESSION: NORMAL BRAIN CT WITHOUT CONTRAST. EVIDENCE OF ACUTE STROKE: NO. Head MRI 01/14/20 00:00 IMPRESSION: NORMAL MRI OF THE BRAIN WITHOUT INTRAVENOUS GADOLINIUM CONTRAST. EVIDENCE OF ACUTE STROKE: NO. PICC Line Insertion 01/14/20 00:00 IMPRESSION: SUCCESSFUL PLACEMENT OF A 5 FR DUAL LUMEN 39 CM PICC IN THE LEFT BASILIC VEIN. KUB X-Ray 01/14/20 08:46 IMPRESSION: 1. NASOGASTRIC TUBE, TIP IN THE STOMACH. 2. DISTENDED CONTRAST FILLED BLADDER. CORRELATE WITH ANY POSSIBILITY OF BLADDER OUTLET OBSTRUCTION. Assessment and Plan - Diagnosis (1) Meningitis Is this a current diagnosis for this admission?: Yes Plan: - came in due to AMS, fever, has worsening headache and photophobia 3 days prior - being treated for UTI - +ve confusion, +ve nuchal rigidity - WBC 19.6>18.7 neutrophil predominant - s/p LP with CSF cloudy and yellowish in appearance - CSF culture growing gram negative rods - prelim gram stain no bacteria, blood and urine culture negative in 48 hrs - ID consulted. Recommended to stop ampi,vanc and acyclovir, switch to cefepim e+genta total of 21 days treatment - Abx Ceftri 2 doses stopped 01/13/20 Cefepime D2 started 01/13/20 Vanc 2 days stopped 01/14/20 Ampicillin 2 days stopped 01/14/20 Gentamycin started 01/14/20 Acyclovir 2 days stopped 01/14/20 - awaiting bed availability at [facility]. Accepting physician Dr. Kan - was not given dexa because abx has already been given several hours after LP (2) Acute encephalopathy Is this a current diagnosis for this admission?: Yes Plan: - came in with AMS, fever, headache - Hx of migraine -CT head negative - EEG unrevealing for epileptic focus -electrolytes within range -LP and CSF culture growing gram negative rods -cefepime + genta -We will continue to monitor (3) Upper GI bleed Is this a current diagnosis for this admission?: Yes Plan: -Patient had one episode of coffee-ground emesis in the ED -Digital rectal exam heme positive -Hemoglobin 11>10.8 from 13.8 -Hemodynamically stable -We will keep n.p.o. -on Protonix -Repeat hemoglobin tomorrow no indication for blood transfusion or emergent EGD for now -Continue IV fluids -Type and screen ordered (4) UTI (urinary tract infection) Qualifiers: Hematuria presence: with hematuria Is this a current diagnosis for this admission?: Yes Plan: -Diagnosed 2 days prior with positive nitrite and leukocyte in the UA -Needed with Macrobid in the ED -Patient is currently on cefepime for suspected meningitis which should cover her UTI as well (5) Fever Qualifiers: Fever type: unspecified Qualified Code(s): R50.9 - Fever, unspecified Is this a current diagnosis for this admission?: Yes Plan: -Likely secondary to ongoing infection - blood culture negative x 48 hrs - repeat Bcx sent -On appropriate antibiotics (6) Spina bifida Qualifiers: Presence of hydrocephalus: without hydrocephalus Is this a current diagnosis for this admission?: Yes - Time Time Spent with patient: 35 or more minutes Anticipated Discharge Disposition: Tertiary Anticipated Discharge Timeframe: within 48 hours
--- NOTE | 2020-01-14 18:47 | PDOC CRITICAL CARE PROG REPORT ---
General Date:: 01/14/20 Resuscitation Status: Full Code Review of systems relevant to events:: Neurological Reason for ICU Addmission:: Evaluation - Medications: Medications reviewed and adjusted accordingly: Yes Vasopressors:: None Sedation:: None Physical Exam Vital Signs: Temp Pulse Resp BP Pulse Ox 98.9 F 128 H 48 H 134/87 H 97 01/14/20 10:00 01/14/20 14:00 01/14/20 08:00 01/14/20 08:00 01/14/20 08:00 Intake & Output 01/13/20 01/14/20 01/15/20 06:59 06:59 06:59 Intake Total 1350 1650 1100 Output Total 1300 Balance 50 1650 1100 Weight 58 kg 59.7 kg 59.7 kg Weight/Height Weight 59.7 kg Height 5 ft General appearance: PRESENT: disheveled Head exam: PRESENT: atraumatic, normocephalic Eye exam: PRESENT: conjunctiva pink, PERRLA Ear exam: PRESENT: normal external ear exam Mouth exam: PRESENT: moist, tongue midline Respiratory exam: PRESENT: clear to auscultation nolberto, crackles - Mild bilateral. ABSENT: rales, rhonchi, wheezes Cardiovascular exam: PRESENT: RRR. ABSENT: diastolic murmur, rubs, systolic murmur GI/Abdominal exam: PRESENT: normal bowel sounds, soft. ABSENT: distended, guarding, mass, organolmegaly, rebound, tenderness Rectal exam: PRESENT: deferred Gentrourinary exam: PRESENT: indwelling catheter Extremities exam: PRESENT: full ROM. ABSENT: calf tenderness, clubbing, pedal edema Musculoskeletal exam: PRESENT: normal inspection Neurological exam: PRESENT: altered, other - She will respond to pain. Voices one word complaints and is clenching teeth. She will push my hand away and attempt to hit me with yankauer Psychiatric exam: PRESENT: agitated Skin exam: PRESENT: dry, intact, warm. ABSENT: cyanosis, rash Laboratory/Radiographs Laboratory Results: 01/14/20 12:38 01/14/20 12:38 01/14/20 01/14/20 01/14/20 12:10 12:38 12:38 WBC 18.8 H RBC 3.58 L Hgb 10.7 L Hct 31.1 L MCV 87 MCH 29.8 MCHC 34.3 RDW 16.2 H Plt Count 552 H Seg Neutrophils % Not Reportable Carbonic Acid 1.10 HCO3/H2CO3 Ratio 25:1 ABG pH 7.50 H ABG pCO2 36.7 ABG pO2 62.6 L ABG HCO3 27.7 H ABG O2 Saturation 93.8 L ABG Base Excess 4.4 FiO2 36% Sodium 148.3 H Potassium 4.4 Chloride 108 H Carbon Dioxide 29 Anion Gap 11 BUN 15 Creatinine 0.67 Est GFR ( Amer) > 60 Glucose 144 H Calcium 9.4 Total Bilirubin 0.6 AST 63 H Alkaline Phosphatase 114 Total Protein 6.3 Albumin 3.1 L 01/12/20 08:14 Catheterized Urine Urine Culture - Final NO GROWTH 2 DAYS 01/12/20 01/12/20 01/12/20 07:07 07:07 15:20 Creatine Kinase 29 L 80 Troponin I 0.052 01/12/20 20:55 Creatine Kinase Troponin I 0.052 Impressions: Chest CT 01/12/20 00:00 IMPRESSION: 1. Atelectasis at the lung bases with no focal confluent consolidation. 2. Too small to characterize hepatic lesions likely hepatic cysts or small hemangiomas. Lumbar Puncture CT 01/12/20 00:00 IMPRESSION: Lumbar puncture under CT guidance. No immediate complication. Chest X-Ray 01/14/20 00:00 IMPRESSION: BILATERAL AIRSPACE DISEASE WITH INCREASING CONSOLIDATION IN THE LEFT LUNG WORRISOME FOR PNEUMONIA. Head CT 01/14/20 00:00 IMPRESSION: NORMAL BRAIN CT WITHOUT CONTRAST. EVIDENCE OF ACUTE STROKE: NO. Head MRI 01/14/20 00:00 IMPRESSION: NORMAL MRI OF THE BRAIN WITHOUT INTRAVENOUS GADOLINIUM CONTRAST. EVIDENCE OF ACUTE STROKE: NO. PICC Line Insertion 01/14/20 00:00 IMPRESSION: SUCCESSFUL PLACEMENT OF A 5 FR DUAL LUMEN 39 CM PICC IN THE LEFT BASILIC VEIN. KUB X-Ray 01/14/20 08:46 IMPRESSION: 1. NASOGASTRIC TUBE, TIP IN THE STOMACH. 2. DISTENDED CONTRAST FILLED BLADDER. CORRELATE WITH ANY POSSIBILITY OF BLADDER OUTLET OBSTRUCTION. All labs, radiographs, diagnostic studies and EKGs were personally reviewed: Yes In addition, reports of radiographic and diagnostic studies were read: Yes Assessment and Plan - Diagnosis (1) Altered mental status Qualifiers: Altered mental status type: unspecified Qualified Code(s): R41.82 - Altered mental status, unspecified Is this a current diagnosis for this admission?: Yes Plan: She has a delerium. This is probably multifactorial and related to infection. Although delirious there is enough orientation to push away at strike out. River atment will be dependant on clearance of infection. (2) Meningitis Is this a current diagnosis for this admission?: Yes Plan: She has GNR in CSF and was recently treated for UTI. E. coli is possible but not a common CSF pathogen. Condsider transfer to a facility with on site neurology. (3) Spina bifida Qualifiers: Presence of hydrocephalus: without hydrocephalus Is this a current diagnosis for this admission?: Yes Plan: This may be playing a role in meningitis, but treatment is the same. (4) Opacities of both lungs present on chest x-ray Is this a current diagnosis for this admission?: Yes Plan: The opacities on the L are dense and new. Given her preferential position on the L side I would think aspiration is likely. Make sure NG is functional, stomach is empty. NPO until more awake. Antibiotics as being given Plan Summary: At this point if kept NPO with an empty stomach she is not an ICU candidate as she is protecting airway, treatment will be the same and again, there is no neurologist. Reconsult if respiratory status deteriorates further. Critical Time Critical Time (minutes): 35 Level of Care: IMCU Anticipated discharge: Home Anticipated DC Timeframe: Other -: 1. The care of a critical patient is a dynamic process. This note is a manufacturer's service representative synopsis but static in nature. The timeframe for treatments given in order is not necessarily the actual time these treatments may have been done. 2. This patient requires critical care secondary to ongoing requirements for therapy not offered or safe outside the critical care environment. Transfer to a lower level of care will result in altered life or limb morbidity and mortality. 3. Multidisciplinary rounds completed. 4. ABCDE bundle addressed.
[2020-01-14] MEDS ORDERED: GENTAMICIN SULFATE 120 MG in DEXTROSE 5%-WATER 100 ML IV ONE (21:00)
[2020-01-14] MEDS: LORAZEPAM INJ 2 MG/1 ML VIAL IV PRN (21:36)
[2020-01-15] MEDS: ACETAMINOPHEN 650 MG SUPP.RECT PR PRN (00:08)
[2020-01-15] MEDS: LORAZEPAM INJ 2 MG/1 ML VIAL IV PRN (01:30)
[2020-01-15] MEDS: CEFEPIME HCL 2 GM in DEXTROSE 5%-WATER 50 ML IV SCH ×3 (01:30→18:03)
[2020-01-15] MEDS: DEXTROSE 5%-LACTATED RINGERS 1,000 ML IV PRN ×3 (01:31→14:42)
[2020-01-15] MEDS: HEPARIN SOD (PORCINE) 5,000 UNIT/ML 1 ML VIAL SUBCUT SCH ×3 (05:50→23:47)
[2020-01-15] MEDS: GENTAMICIN SULFATE 100 MG in DEXTROSE 5%-WATER 100 ML IV SCH ×3 (06:05→23:47)
[2020-01-15 08:00] LABS: ABSOLUTE LYMPHOCYTES (AUTO) 1.2 10^3/uL (0.5-4.7); ABSOLUTE MONOCYTES (AUTO) 0.6 10^3/uL (0.1-1.4); ABSOLUTE NEUT (AUTO) 13.4 10^3/uL (1.7-8.2); BASOPHILS % (AUTO) 0.1 % (0-2); EOSINOPHILS % (AUTO) 0.2 % (0-6); HEMATOCRIT 28.4 % (36.0-47.0); HEMOGLOBIN 8.9 g/dL (12.0-15.5); MEAN CORPUSCULAR HGB CONC 31.5 g/dL (32.0-36.0); MONOCYTES % (AUTO) 3.9 % (3-13); PLATELET COUNT 555 10^3/uL (150-450); RED BLOOD COUNT 3.09 10^6/uL (3.72-5.28); RED CELL DISTRIBUTION WIDTH 17.5 % (11.5-14.0); SEGMENTED NEUTROPHILS % (AUTO) 87.8 % (42-78); TOTAL CELLS COUNTED % (AUTO) 100 %; WHITE BLOOD COUNT 15.3 10^3/uL (4.0-10.5)
[2020-01-15 08:06] LABS: MEAN CORPUSCULAR VOLUME 92 fl (80-97)
[2020-01-15 08:22] LABS: ALBUMIN 2.5 g/dL (3.5-5.0); ALKALINE PHOSPHATASE 78 U/L (38-126); ANION GAP 7 (5-19); ASPARTATE AMINO TRANSFERASE 168 U/L (14-36); BILIRUBIN,DIRECT 0.4 mg/dL (0.0-0.4); BILIRUBIN,TOTAL 0.4 mg/dL (0.2-1.3); BLOOD UREA NITROGEN 14 mg/dL (7-20); CALCIUM 8.6 mg/dL (8.4-10.2); CARBON DIOXIDE 29 mmol/L (22-30); CHLORIDE 111 mmol/L (98-107); POTASSIUM 4.3 mmol/L (3.6-5.0); TOTAL PROTEIN 5.2 g/dL (6.3-8.2)
[2020-01-15 08:32] LABS: GLUCOSE 543 mg/dL (75-110)
[2020-01-15] MEDS ORDERED: INSULIN LISPRO 100 UNIT/ML 3 ML VIAL SUBCUT ONE (09:15)
[2020-01-15] MEDS: PANTOPRAZOLE SODIUM 40 MG VIAL IV SCH ×2 (09:29→18:03)
[2020-01-15] MEDS ORDERED: MORPHINE SULFATE 10 MG/ML INJ IV PRN (11:52)
[2020-01-15] MEDS ORDERED: GLUCAGON,HUMAN RECOMB 1 MG INJ IM PRN (12:55)
[2020-01-15] MEDS ORDERED: DEXTROSE 50%-WATER 25 GM/50 ML DISP.SYRIN IV PRN ×2 (12:55)
[2020-01-15] MEDS ORDERED: DEXTROSE 40% GEL 15 GM TUBE PO PRN ×2 (12:55)
--- NOTE | 2020-01-15 13:06 | PDOC PROGRESS REPORT ---
Subjective Progress Note for:: 01/15/20 Subjective:: KINZA KEANE I is a 54 year old female, past medical history of spina bifida, migraine who was brought in by EMS due to altered mental status. Patient started to experience headache about 3 days prior to admission. She was seen at [facility] 01/08 for the headache and was prescribed Fioricet, Phenergan, prednisone taper for migraine. Upon speaking to her her headache was not her usual migraine headaches. She came to [facility] January 09 due to headache and was found to have a UTI, with positive nitrite, increased WBC in the urine. Patient was sent home on Macrobid. At around 3 AM this morning her tried to give her her medications when he noticed that she was clenching her jaw shut, grinding her teeth and could not recognize him and was very confused. She also apparently had episodes of hematemesis in the emergency room. Emergency room, blood pressure 150/87, heart rate of 106, temperature 99.5. CBC showed WBC count of 19.6, hemoglobin of 11.1, platelet count 485. CMP showed normal creatinine, normal electrolytes, normal ammonia. Urinalysis no nitrites no leukocytes. She was given 1 dose of IV ceftriaxone. CT scan of the head was negative. When I examined her in the emergency room, she was minimally verbal, with periods of restlessness confusion. She exhibits nuchal rigidity. Lumbar puncture was done per IR which showed cloudy, yellow CSF, CSF WBC 3925, glucose less than 20, CSF protein 1727 which are consistent with bacterial meningitis. Vancomycin and ampicillin added on top of ceftriaxone. She was subsequently admitted for further management. 01/13/20 D2 Hospital stay. She was seen and examined at bedside. She is still not talking and not following commands, but open eyes spontaneously. She is still spiking fever Tmax 103. Preliminary CSF result gram stain no bacteria seen. blood culture and urine culture negative 24 hrs. Of note, CSF sample was taken >4 hrs after receiving 1 dose of ceftriaxone. ID consulted. I was able to speak to her about her diagnosis. Ceftriaxone switched to cefepime. 01/14/20 D3 Hospital stay. She was seen and examined at bedside. She is still very altered and she was noted to have episodes of hyperventilation and 5 seconds of apnea. Her pupils are equal but sluggishly reactive. I asked Dr. De Leon to assess her unfortunately he is unable to take her down to ICU due to bed availability. Repeat CT head showed no acute findings. CSF culture prel iminary showed growth of gram negative rods. Her abx was switched to cefepime since yesterday, still on ampicillin, vanc and acyclovir. Infectious disease was consulted who recommended to add gentamycin to cefepime or switch to meropenem. I reached out to [facility] for possible transfer but they are unfortunately at capacity. I was able to discuss her case with Dr. Cuba Hummel because I was concer anali about increased ICP and wanted his opinion regarding mannitol or 3% saline. He recommended against it unless there are clear signs she's herniating like anisocoria, obtundation, or CT head shows edema. I spoke to [facility] who is at capacity as well. I reached out to [facility] and was able to speak to a neurologist Dr. Kan who accepted her. However due to unavailability of bed in the ICU she will be put on a wait list until she gets a bed. 01/15/20 D4 hospital stay. She was seen and examined at bedside. Not much has changed in terms of mental status although she opens her eyes when her name is called. Her pupils are 4 mm briskly reactive. Last fever episode (01/14/20) midnight 102. 4. Final CSF culture growing E.coli sensitive to ampicillin, merem, bactrim. She is on cefepime and genta per ID recs. Still tachycardic and tachypneic. She was started on toradol for pain, and trial morphine. Still awaiting [facility] transfer Reason For Visit: ACUTE ENCEPHALOPATHY, UTI Physical Exam Vital Signs: Temp Pulse Resp BP Pulse Ox 99.9 F 128 H 45 H 141/85 H 94 01/15/20 11:09 01/15/20 11:09 01/15/20 11:09 01/15/20 11:09 01/15/20 11:09 Intake & Output 01/14/20 01/15/20 01/16/20 06:59 06:59 06:59 Intake Total 1650 1200 1000 Balance 1650 1200 1000 Weight 59.7 kg 62.1 kg General appearance: PRESENT: other - alterered, unable to follow command Head exam: PRESENT: atraumatic, normocephalic Eye exam: PRESENT: EOMI, PERRLA Mouth exam: PRESENT: moist Neck exam: PRESENT: meningismus Respiratory exam: PRESENT: clear to auscultation nolberto, symmetrical, tachypnea Cardiovascular exam: PRESENT: +S1, +S2, tachycardia. ABSENT: systolic murmur Pulses: PRESENT: +2 pedal pulses bilateral GI/Abdominal exam: PRESENT: normal bowel sounds, soft. ABSENT: tenderness Extremities exam: PRESENT: other - limited ROM Musculoskeletal exam: PRESENT: deformity Neurological exam: PRESENT: other - altered mental status unable to assess fully but she is able to open her eyes when her name is called Skin exam: PRESENT: normal color Results Laboratory Results: 01/15/20 07:43 01/15/20 07:43 01/14/20 01/14/20 01/14/20 12:10 12:38 12:38 WBC 18.8 H RBC 3.58 L Hgb 10.7 L Hct 31.1 L MCV 87 MCH 29.8 MCHC 34.3 RDW 16.2 H Plt Count 552 H Seg Neutrophils % Not Reportable Carbonic Acid 1.10 HCO3/H2CO3 Ratio 25:1 ABG pH 7.50 H ABG pCO2 36.7 ABG pO2 62.6 L ABG HCO3 27.7 H ABG O2 Saturation 93.8 L ABG Base Excess 4.4 FiO2 36% Sodium 148.3 H Potassium 4.4 Chloride 108 H Carbon Dioxide 29 Anion Gap 11 BUN 15 Creatinine 0.67 Est GFR ( Amer) > 60 Est GFR (Non-Af Amer) Glucose 144 H Calcium 9.4 Total Bilirubin 0.6 AST 63 H Alkaline Phosphatase 114 Total Protein 6.3 Albumin 3.1 L 01/15/20 01/15/20 01/15/20 06:23 06:23 07:43 WBC Cancelled 15.3 H RBC Cancelled 3.09 L Hgb Cancelled 8.9 L Hct Cancelled 28.4 L MCV Cancelled 92 D MCH Cancelled 29.0 MCHC Cancelled 31.5 L RDW Cancelled 17.5 H Plt Count Cancelled 555 H Seg Neutrophils % Cancelled 87.8 H Carbonic Acid HCO3/H2CO3 Ratio ABG pH ABG pCO2 ABG pO2 ABG HCO3 ABG O2 Saturation ABG Base Excess FiO2 Sodium Cancelled Potassium Cancelled Chloride Cancelled Carbon Dioxide Cancelled Anion Gap Cancelled BUN Cancelled Creatinine Cancelled Est GFR ( Amer) Cancelled Est GFR (Non-Af Amer) Cancelled Glucose Cancelled Calcium Cancelled Total Bilirubin Cancelled AST Cancelled Alkaline Phosphatase Cancelled Total Protein Cancelled Albumin Cancelled 01/15/20 07:43 WBC RBC Hgb Hct MCV MCH MCHC RDW Plt Count Seg Neutrophils % Carbonic Acid HCO3/H2CO3 Ratio ABG pH ABG pCO2 ABG pO2 ABG HCO3 ABG O2 Saturation ABG Base Excess FiO2 Sodium 147.0 H Potassium 4.3 Chloride 111 H Carbon Dioxide 29 Anion Gap 7 BUN 14 Creatinine 0.57 Est GFR ( Amer) > 60 Est GFR (Non-Af Amer) Glucose 543 H* Calcium 8.6 Total Bilirubin 0.4 AST 168 H Alkaline Phosphatase 78 Total Protein 5.2 L Albumin 2.5 L 01/12/20 16:43 Cerebral Spinal Fluid - Csf Gram Stain - Final 01/12/20 16:43 Cerebral Spinal Fluid - Csf CSF Culture - Final Escherichia Coli 01/12/20 08:14 Catheterized Urine Urine Culture - Final NO GROWTH 2 DAYS 01/12/20 01/12/20 01/12/20 07:07 07:07 15:20 Creatine Kinase 29 L 80 Troponin I 0.052 01/12/20 20:55 Creatine Kinase Troponin I 0.052 Impressions: Chest CT 01/12/20 00:00 IMPRESSION: 1. Atelectasis at the lung bases with no focal confluent consolidation. 2. Too small to characterize hepatic lesions likely hepatic cysts or small hemangiomas. Lumbar Puncture CT 01/12/20 00:00 IMPRESSION: Lumbar puncture under CT guidance. No immediate complication. Chest X-Ray 01/14/20 00:00 IMPRESSION: BILATERAL AIRSPACE DISEASE WITH INCREASING CONSOLIDATION IN THE LEFT LUNG WORRISOME FOR PNEUMONIA. Head CT 01/14/20 00:00 IMPRESSION: NORMAL BRAIN CT WITHOUT CONTRAST. EVIDENCE OF ACUTE STROKE: NO. Head MRI 01/14/20 00:00 IMPRESSION: NORMAL MRI OF THE BRAIN WITHOUT INTRAVENOUS GADOLINIUM CONTRAST. EVIDENCE OF ACUTE STROKE: NO. PICC Line Insertion 01/14/20 00:00 IMPRESSION: SUCCESSFUL PLACEMENT OF A 5 FR DUAL LUMEN 39 CM PICC IN THE LEFT B ASILIC VEIN. KUB X-Ray 01/14/20 08:46 IMPRESSION: 1. NASOGASTRIC TUBE, TIP IN THE STOMACH. 2. DISTENDED CONTRAST FILLED BLADDER. CORRELATE WITH ANY POSSIBILITY OF BLADDER OUTLET OBSTRUCTION. Assessment and Plan - Diagnosis (1) Meningitis Is this a current diagnosis for this admission?: Yes Plan: -came in due to AMS, fever, has worsening headache and photophobia 3 days prior - was being treated for UTI - +ve confusion, +ve nuchal rigidity - WBC 19.6>18.7>15.3 neutrophil predominant - s/p LP with CSF cloudy and yellowish in appearance - CSF culture growing E.coli - blood and urine culture negative in 48 hrs - ID consulted. Recommended to stop ampi,vanc and acyclovir, switch to cefepime+genta total of 21 days treatment - Abx Ceftri 2 doses stopped 01/13/20 Cefepime D3 started 01/13/20 Vanc 2 days stopped 01/14/20 Ampicillin 2 days stopped 01/14/20 Gentamycin D1 started 01/14/20 Acyclovir 2 days stopped 01/14/20 - [facility] Accepting physician Dr. Kan - was not given dexa because abx has already been given several hours after LP (2) Acute encephalopathy Is this a current diagnosis for this admission?: Yes Plan: - came in with AMS, fever, headache - Hx of migraine -CT head negative - EEG unrevealing for epileptic focus -electrolytes within range -LP and CSF culture growing E.coli -cefepime D3+ genta D1 -We will continue to monitor (3) Upper GI bleed Is this a current diagnosis for this admission?: Yes Plan: -Patient had one episode of coffee-ground emesis in the ED -Digital rectal exam heme positive -Hemoglobin 11>10.8 from 13.8 -Hemodynamically stable -We will keep n.p.o. -on Protonix -will monitor no indication for blood transfusion or emergent EGD for now -Continue IV fluids -Type and screen ordered (4) UTI (urinary tract infection) Qualifiers: Hematuria presence: with hematuria Is this a current diagnosis for this admission?: Yes Plan: -Diagnosed 2 days prior with positive nitrite and leukocyte in the UA -Needed with Macrobid in the ED -Patient is currently on cefepime for suspected meningitis which should cover her UTI as well (5) Fever Qualifiers: Fever type: unspecified Qualified Code(s): R50.9 - Fever, unspecified Is this a current diagnosis for this admission?: Yes Plan: -Likely secondary to ongoing infection - last fever episode 01/14/20 102 - on tylenol - blood culture negative x 48 hrs - repeat Bcx sent - CSF growing e.coli -On appropriate antibiotics (6) Spina bifida Qualifiers: Presence of hydrocephalus: without hydrocephalus Is this a current diagnosis for this admission?: Yes Plan: This may be playing a role in meningitis, but treatment is the same. - Time Time Spent with patient: 25-34 minutes Anticipated Discharge Disposition: Tertiary Anticipated Discharge Timeframe: to be determined
[2020-01-15] MEDS: METOPROLOL TARTRATE 25 MG TABLET PO SCH (13:51)
[2020-01-15] MEDS: KETOROLAC TROMETHAMINE INJ/PF 30 MG/1 ML SDV IV SCH ×3 (13:53→23:48)
[2020-01-15] MEDS: INSULIN LISPRO 100 UNIT/ML 3 ML VIAL SUBCUT SCH ×2 (18:07→23:47)
[2020-01-16] MEDS: CEFEPIME HCL 2 GM in DEXTROSE 5%-WATER 50 ML IV SCH ×2 (02:21→09:04)
[2020-01-16] MEDS: KETOROLAC TROMETHAMINE INJ/PF 30 MG/1 ML SDV IV SCH (05:39)
[2020-01-16] MEDS: GENTAMICIN SULFATE 100 MG in DEXTROSE 5%-WATER 100 ML IV SCH (05:40)
[2020-01-16] MEDS: HEPARIN SOD (PORCINE) 5,000 UNIT/ML 1 ML VIAL SUBCUT SCH ×3 (05:40→21:19)
[2020-01-16] MEDS: INSULIN LISPRO 100 UNIT/ML 3 ML VIAL SUBCUT SCH ×3 (05:53→18:41)
[2020-01-16 06:20] LABS: HEMATOCRIT 30.8 % (36.0-47.0); HEMOGLOBIN 9.9 g/dL (12.0-15.5); MEAN CORPUSCULAR HEMOGLOBIN 28.7 pg (27.0-33.4); MEAN CORPUSCULAR HGB CONC 32.2 g/dL (32.0-36.0); MEAN CORPUSCULAR VOLUME 89 fl (80-97); PLATELET COUNT 500 10^3/uL (150-450); RED BLOOD COUNT 3.45 10^6/uL (3.72-5.28); RED CELL DISTRIBUTION WIDTH 16.6 % (11.5-14.0)
[2020-01-16 06:45] LABS: ALBUMIN 2.9 g/dL (3.5-5.0); ALKALINE PHOSPHATASE 103 U/L (38-126); ANION GAP 5 (5-19); ASPARTATE AMINO TRANSFERASE 138 U/L (14-36); BILIRUBIN,DIRECT 0.4 mg/dL (0.0-0.4); BILIRUBIN,TOTAL 0.6 mg/dL (0.2-1.3); BLOOD UREA NITROGEN 18 mg/dL (7-20); CALCIUM 9.4 mg/dL (8.4-10.2); CARBON DIOXIDE 31 mmol/L (22-30); CHLORIDE 112 mmol/L (98-107); GLUCOSE 141 mg/dL (75-110); POTASSIUM 4.1 mmol/L (3.6-5.0); TOTAL PROTEIN 5.9 g/dL (6.3-8.2)
[2020-01-16 06:48] LABS: GENTAMICIN-TROUGH 4.6 ug/mL (<2.0)
[2020-01-16] MEDS: METOPROLOL TARTRATE PF/INJ 5 MG/5 ML SDV IV PRN (06:51)
[2020-01-16] MEDS: DEXTROSE 5%-LACTATED RINGERS 1,000 ML IV PRN (06:52)
[2020-01-16 07:31] LABS: ABSOLUTE LYMPHOCYTES# (MANUAL) 1.4 10^3/uL (0.5-4.7); ABSOLUTE MONOCYTES # (MANUAL) 0.5 10^3/uL (0.1-1.4); BASOPHILS % (MANUAL) 0 % (0-2); EOSINOPHILS % (MANUAL) 0 % (0-6); LYMPHOCYTES % (MANUAL) 8 % (13-45); MONOCYTES % (MANUAL) 3 % (3-13); NUCLEATED RED BLOOD CELLS 1 /100 WBC (0); SEGMENTED NEUTROPHILS % (MAN) 89 % (42-78); TOTAL CELLS COUNTED 100
[2020-01-16 07:35] LABS: ANISOCYTOSIS 1+; PLATELET COMMENT ADEQUATE; TOXIC GRANULATION 1+; TOXIC VACUOLATION PRESENT
[2020-01-16] MEDS ORDERED: NORMAL SALINE 10 ML SDV (AFTER EACH USE) IV PRN (08:00)
[2020-01-16] MEDS: 1/2 NORMAL SALINE 1,000 ML IV PRN ×2 (08:10→22:10)
[2020-01-16] MEDS: METOPROLOL TARTRATE 25 MG TABLET PO SCH (09:03)
[2020-01-16] MEDS: PANTOPRAZOLE SODIUM 40 MG VIAL IV SCH ×2 (09:03→18:30)
[2020-01-16] MEDS: NORMAL SALINE 10 ML SDV (SCHEDULED) IV SCH ×2 (09:04→21:19)
[2020-01-16 09:59] LABS: GENTAMICIN-PEAK 8.8 ug/mL (5.0-10.0)
--- NOTE | 2020-01-16 11:33 | Progress Note ---
Provider Note Provider Note: [facility] Telephone Advice - Follow up Chart reviewed. Patient not examined. Patient is a 54-year-old woman with history of spina bifida and migraines who started presenting headache on 01/08. She initially went to [facility]. It was thought to be migraines for which she received phenergan, fioricet and prednisone taper. Next day her symptoms worsened and she presented altered mental status. She was taken to the ED and she was initially found with low grade fever, tachycardia. She was found with pyuria and was given nitrofurantoin and was sent home. She returned to the hospital with altered mental status and nuchal rigidity. A lumbar puncture was done in the ED. WBC 3,925; Glucose <20, protein 1,727. She had leukocytosis of 19k on admission. She was started on vancomcyin, cefepime, ampicillin. Acyclovir was added. She kept spiking fever of 102, 103. Ceftriaxone was changed to cefepime when CSF Gram stain was positive for a GNR. Patient continues with altered mental status, leukocytosis. Fever slowly improving, last 102 was on 01/15. WBC increased to 17k today. She is on cefepime and gentamicin pr our recommendations. CSF culture furthr identified this GNR as E coli, pansusceptible. Vital Signs: Temp Pulse Resp BP Pulse Ox 97.2 F 110 H 24 H 140/85 H 97 01/16/20 10:00 01/16/20 08:19 01/16/20 08:19 01/16/20 08:19 01/16/20 08:19 Intake & Output 01/15/20 01/16/20 01/17/20 06:59 06:59 06:59 Intake Total 1200 3400 104 Balance 1200 3400 104 Weight 62.1 kg 63.1 kg Weight/Height Weight 63.1 kg Height 5 ft Laboratories: 01/16/20 05:45 01/16/20 05:45 MCV 89 fl (80-97) 01/16/20 05:45 MCH 28.7 pg (27.0-33.4) 01/16/20 05:45 MCHC 32.2 g/dL (32.0-36.0) 01/16/20 05:45 RDW 16.6 % (11.5-14.0) H 01/16/20 05:45 Seg Neutrophils % Not Reportable 01/16/20 05:45 Carbonic Acid 1.10 mmol/L (1.05-1.35) 01/14/20 12:10 HCO3/H2CO3 Ratio 25:1 01/14/20 12:10 ABG pH 7.50 (7.35-7.45) H 01/14/20 12:10 ABG pCO2 36.7 mmHg (35-45) 01/14/20 12:10 ABG pO2 62.6 mmHg (80-100) L 01/14/20 12:10 ABG HCO3 27.7 mmol/L (20-24) H 01/14/20 12:10 ABG O2 Saturation 93.8 % (94-98) L 01/14/20 12:10 ABG Base Excess 4.4 mmol/L 01/14/20 12:10 FiO2 36% 01/14/20 12:10 Chloride 112 mmol/L (98-107) H 01/16/20 05:45 Carbon Dioxide 31 mmol/L (22-30) H 01/16/20 05:45 Anion Gap 5 (5-19) 01/16/20 05:45 Est GFR ( Amer) > 60 (>60) 01/16/20 05:45 Est GFR (Non-Af Amer) Cancelled 01/15/20 06:23 Glucose 141 mg/dL (75-110) H 01/16/20 05:45 Calcium 9.4 mg/dL (8.4-10.2) 01/16/20 05:45 Magnesium 1.9 mg/dL (1.6-2.3) 01/12/20 07:07 Total Bilirubin 0.6 mg/dL (0.2-1.3) 01/16/20 05:45 AST 138 U/L (14-36) H 01/16/20 05:45 Alkaline Phosphatase 103 U/L (38-126) 01/16/20 05:45 Ammonia < 8.7 umol/L (9-33) L 01/12/20 15:20 Total Protein 5.9 g/dL (6.3-8.2) L 01/16/20 05:45 Albumin 2.9 g/dL (3.5-5.0) L 01/16/20 05:45 TSH 0.31 uIU/mL (0.47-4.68) L 01/12/20 15:20 Urine Color YELLOW 01/12/20 08:14 Urine Appearance CLEAR 01/12/20 08:14 Urine pH 6.0 (5.0-9.0) 01/12/20 08:14 Ur Specific [place] 1.013 01/12/20 08:14 Urine Protein 30 mg/dL (NEGATIVE) H 01/12/20 08:14 Urine Glucose (UA) NEGATIVE mg/dL (NEGATIVE) 01/12/20 08:14 Urine Ketones TRACE mg/dL (NEGATIVE) H 01/12/20 08:14 Urine Blood SMALL (NEGATIVE) H 01/12/20 08:14 Urine Nitrite NEGATIVE (NEGATIVE) 01/12/20 08:14 Ur Leukocyte Esterase NEGATIVE (NEGATIVE) 01/12/20 08:14 Urine WBC (Auto) 4 /HPF 01/12/20 08:14 Urine RBC (Auto) 2 /HPF 01/12/20 08:14 Fluid Tube Number 3 01/12/20 16:43 Fluid Glucose Cancelled 01/12/20 16:43 CSF Volume 7.0 CC 01/12/20 16:43 CSF Appearance HAZY 01/12/20 16:43 CSF Color YELLOW 01/12/20 16:43 CSF WBC 3925 /uL (0-5) H 01/12/20 16:43 CSF RBC 55 /uL (0-10) 01/12/20 16:43 CSF Polymorphonuclear 98 % 01/12/20 16:43 CSF Glucose < 20 mg/dL (40-70) L 01/12/20 16:43 CSF Total Protein 1727 mg/dL (12-60) H 01/12/20 16:43 Blood Type A POSITIVE 01/12/20 10:21 Antibody Screen NEGATIVE 01/12/20 10:21 01/12/20 01/12/20 01/12/20 07:07 07:07 15:20 Creatine Kinase 29 L 80 Troponin I 0.052 01/12/20 20:55 Creatine Kinase Troponin I 0.052 Microbiology: Blood culture NGTD CSF culture GNR 3 colonies - E coli (panS) Radiology: Chest CT 01/12/20 00:00 IMPRESSION: 1. Atelectasis at the lung bases with no focal confluent consolidation. 2. Too small to characterize hepatic lesions likely hepatic cysts or small hemangiomas. Lumbar Puncture CT 01/12/20 00:00 IMPRESSION: Lumbar puncture under CT guidance. No immediate complication. Chest X-Ray 01/14/20 00:00 IMPRESSION: BILATERAL AIRSPACE DISEASE WITH INCREASING CONSOLIDATION IN THE LEFT LUNG WORRISOME FOR PNEUMONIA. Head CT 01/14/20 00:00 IMPRESSION: NORMAL BRAIN CT WITHOUT CONTRAST. EVIDENCE OF ACUTE STROKE: NO. Head MRI 01/14/20 00:00 IMPRESSION: NORMAL MRI OF THE BRAIN WITHOUT INTRAVENOUS GADOLINIUM CONTRAST. EVIDENCE OF ACUTE STROKE: NO. PICC Line Insertion 01/14/20 00:00 IMPRESSION: SUCCESSFUL PLACEMENT OF A 5 FR DUAL LUMEN 39 CM PICC IN THE LEFT BASILIC VEIN. KUB X-Ray 01/14/20 08:46 IMPRESSION: 1. NASOGASTRIC TUBE, TIP IN THE STOMACH. 2. DISTENDED CONTRAST FILLED BLADDER. CORRELATE WITH ANY POSSIBILITY OF BLADDER OUTLET OBSTRUCTION. Assessment and Recommendations: Patient evaluated for bacterial meningitis and possible aspiration pneumonia now. She has been on broad spectrum antibiotics and acyclovir. She is acutely ill, still febrile and with significant leukocytosis. Gram negative rods seen on Gram stain, now finalized as E. coli. She is currently on cefepime and gentamicin empirically can further de escalate to ceftriaxone 2g iv every 12 hr. Considering the severity of her meningitis, will recommend to repeat lumbar puncture to assess if WBC and protein have improved and to check opening p ressure for ICP and cultures. Some patients will require adjunctive intrathecal or intraventricular antibiotic therapy if unable to sterilize cultures despite systemic antibiotic therapy for 3-4 days (done in a tertiary level hospital). Ceftriaxone should cover for aspiration as well if that is still a concern. Duration of therapy will be a total of 21 days, but due to high mortality with E coli meningitis (usually >20-30%) she may benefit from transfer to a higher level of care. Samantha Yen MD [facility] ID [phone]
--- NOTE | 2020-01-16 14:04 | PDOC PROGRESS REPORT ---
Subjective Progress Note for:: 01/16/20 Subjective:: KINZA KEANE I is a 54 year old female, past medical history of spina bifida, migraine who was brought in by EMS due to altered mental status. Patient started to experience headache about 3 days prior to admission. She was seen at [facility] 01/08 for the headache and was prescribed Fioricet, Phenergan, prednisone taper for migraine. Upon speaking to her her headache was not her usual migraine headaches. She came to [facility] January 09 due to headache and was found to have a UTI, with positive nitrite, increased WBC in the urine. Patient was sent home on Macrobid. At around 3 AM this morning her tried to give her her medications when he noticed that she was clenching her jaw shut, grinding her teeth and could not recognize him and was very confused. She also apparently had episodes of hematemesis in the emergency room. Emergency room, blood pressure 150/87, heart rate of 106, temperature 99.5. CBC showed WBC count of 19.6, hemoglobin of 11.1, platelet count 485. CMP showed normal creatinine, normal electrolytes, normal ammonia. Urinalysis no nitrites no leukocytes. She was given 1 dose of IV ceftriaxone. CT scan of the head was negative. When I examined her in the emergency room, she was minimally verbal, with periods of restlessness confusion. She exhibits nuchal rigidity. Lumbar puncture was done per IR which showed cloudy, yellow CSF, CSF WBC 3925, glucose less than 20, CSF protein 1727 which are consistent with bacterial meningitis. Vancomycin and ampicillin added on top of ceftriaxone. She was subsequently admitted for further management. 01/13/20 D2 Hospital stay. She was seen and examined at bedside. She is still not talking and not following commands, but open eyes spontaneously. She is still spiking fever Tmax 103. Preliminary CSF result gram stain no bacteria seen. blood culture and urine culture negative 24 hrs. Of note, CSF sample was taken >4 hrs after receiving 1 dose of ceftriaxone. ID consulted. I was able to speak to her about her diagnosis. Ceftriaxone switched to cefepime. 01/14/20 D3 Hospital stay. She was seen and examined at bedside. She is still very altered and she was noted to have episodes of hyperventilation and 5 seconds of apnea. Her pupils are equal but sluggishly reactive. I asked Dr. De Leon to assess her unfortunately he is unable to take her down to ICU due to bed availability. Repeat CT head showed no acute findings. CSF culture prel iminary showed growth of gram negative rods. Her abx was switched to cefepime since yesterday, still on ampicillin, vanc and acyclovir. Infectious disease was consulted who recommended to add gentamycin to cefepime or switch to meropenem. I reached out to [facility] for possible transfer but they are unfortunately at capacity. I was able to discuss her case with Dr. Cuba Hummel because I was concer anali about increased ICP and wanted his opinion regarding mannitol or 3% saline. He recommended against it unless there are clear signs she's herniating like anisocoria, obtundation, or CT head shows edema. I spoke to [facility] who is at capacity as well. I reached out to [facility] and was able to speak to a neurologist Dr. Kan who accepted her. However due to unavailability of bed in the ICU she will be put on a wait list until she gets a bed. 01/15/20 D4 hospital stay. She was seen and examined at bedside. Not much has changed in terms of mental status although she opens her eyes when her name is called. Her pupils are 4 mm briskly reactive. Last fever episode (01/14/20) midnight 102. 4. Final CSF culture growing E.coli sensitive to ampicillin, merem, bactrim. She is on cefepime and genta per ID recs. Still tachycardic and tachypneic. She was started on toradol for pain, and trial morphine. Still awaiting [facility] transfer. 01/16/20 D5 Hospital Stay. She was seen and examined at bedside. She seems much more alert today, she actually opens her eyes when called and responds to command like opening her eyes and squeezing hands. She is still unable to talk fully. She still spiked a fever of 100.6 yesterday at around 3 pm. She was started on tube feeding slow rate. Her abx has been de escalated to rocephin per CSF culture results. She was accepted at [facility] as well awaiting bed availability. ID recommend repeat Lumbar tap to see if CSF is clear and if not transfer to tertiary care center for intrathecal treatment. Reason For Visit: ACUTE ENCEPHALOPATHY, UTI Physical Exam Vital Signs: Temp Pulse Resp BP Pulse Ox 98.2 F 104 H 26 H 128/83 H 99 01/16/20 12:00 01/16/20 12:00 01/16/20 12:00 01/16/20 12:00 01/16/20 12:00 Intake & Output 01/15/20 01/16/20 01/17/20 06:59 06:59 06:59 Intake Total 1200 3400 129 Balance 1200 3400 129 Weight 62.1 kg 63.1 kg General appearance: PRESENT: cooperative, mild distress Head exam: PRESENT: atraumatic, normocephalic Eye exam: PRESENT: EOMI, PERRLA Mouth exam: PRESENT: moist Neck exam: PRESENT: meningismus Respiratory exam: PRESENT: symmetrical, tachypnea. ABSENT: crackles, wheezes Cardiovascular exam: PRESENT: +S1, +S2, tachycardia Pulses: PRESENT: +2 pedal pulses bilateral GI/Abdominal exam: PRESENT: normal bowel sounds, soft. ABSENT: rebound, t enderness Extremities exam: PRESENT: other - +ve stiffness. ABSENT: +2 edema Musculoskeletal exam: PRESENT: full ROM Neurological exam: PRESENT: other - opens eyes when called and can follow simple commands, still unable to talk Skin exam: PRESENT: normal color Results Laboratory Results: 01/16/20 05:45 01/16/20 05:45 01/16/20 01/16/20 05:45 05:45 WBC 17.0 H RBC 3.45 L Hgb 9.9 L Hct 30.8 L MCV 89 MCH 28.7 MCHC 32.2 RDW 16.6 H Plt Count 500 H Seg Neutrophils % Not Reportable Sodium 148.2 H Potassium 4.1 Chloride 112 H Carbon Dioxide 31 H Anion Gap 5 BUN 18 Creatinine 0.60 Est GFR ( Amer) > 60 Glucose 141 H Calcium 9.4 Total Bilirubin 0.6 AST 138 H Alkaline Phosphatase 103 Total Protein 5.9 L Albumin 2.9 L 01/12/20 01/12/20 01/12/20 07:07 07:07 15:20 Creatine Kinase 29 L 80 Troponin I 0.052 01/12/20 20:55 Creatine Kinase Troponin I 0.052 Impressions: Chest CT 01/12/20 00:00 IMPRESSION: 1. Atelectasis at the lung bases with no focal confluent consolidation. 2. Too small to characterize hepatic lesions likely hepatic cysts or small hemangiomas. Lumbar Puncture CT 01/12/20 00:00 IMPRESSION: Lumbar puncture under CT guidance. No immediate complication. Chest X-Ray 01/14/20 00:00 IMPRESSION: BILATERAL AIRSPACE DISEASE WITH INCREASING CONSOLIDATION IN THE LEFT LUNG WORRISOME FOR PNEUMONIA. Head CT 01/14/20 00:00 IMPRESSION: NORMAL BRAIN CT WITHOUT CONTRAST. EVIDENCE OF ACUTE STROKE: NO. Head MRI 01/14/20 00:00 IMPRESSION: NORMAL MRI OF THE BRAIN WITHOUT INTRAVENOUS GADOLINIUM CONTRAST. EVIDENCE OF ACUTE STROKE: NO. PICC Line Insertion 01/14/20 00:00 IMPRESSION: SUCCESSFUL PLACEMENT OF A 5 FR DUAL LUMEN 39 CM PICC IN THE LEFT BASILIC VEIN. KUB X-Ray 01/14/20 08:46 IMPRESSION: 1. NASOGASTRIC TUBE, TIP IN THE STOMACH. 2. DISTENDED CONTRAST FILLED BLADDER. CORRELATE WITH ANY POSSIBILITY OF BLADDER OUTLET OBSTRUCTION. Assessment and Plan - Diagnosis (1) Meningitis Is this a current diagnosis for this admission?: Yes Plan: -came in due to AMS, fever, has worsening headache and photophobia 3 days prior - was being treated for UTI - +ve confusion, +ve nuchal rigidity - WBC 19.6>18.7>15.3 neutrophil predominant - s/p LP with CSF cloudy and yellowish in appearance - CSF culture growing E.coli - blood and urine culture negative in 48 hrs - ID consulted. Recommended to de escalate to rocephin. repeat LP to see if CSF has cleared. - Abx Ceftri 2 doses stopped 01/13/20 Cefepime D4 started 01/13/20 stopped 01/16/20 Vanc 2 days stopped 01/14/20 Ampicillin 2 days stopped 01/14/20 Gentamycin D2 started 01/14/20- stopped 01/16/20 Acyclovir 2 days stopped 01/14/20 Ceftriaxone D1 started 01/16/20 - was not given dexa because abx has already been given several hours after LP - awaiting bed availability at [facility]. Accepting physician Dr. Kan - awaiting bed availability at [facility]. - (2) Acute encephalopathy Is this a current diagnosis for this admission?: Yes Plan: - IMPROVED - came in with AMS, fever, headache - Hx of migraine -CT head negative - EEG unrevealing for epileptic focus -electrolytes within range -LP and CSF culture growing E.coli -rocephin for abx -We will continue to monitor (3) Upper GI bleed Is this a current diagnosis for this admission?: Yes Plan: -Patient had one episode of coffee-ground emesis in the ED -Digital rectal exam heme positive -Hemoglobin 11>10.8 from 13.8 -Hemodynamically stable -started on Tube feeds slow rate -on Protonix -will monitor no indication for blood transfusion or emergent EGD for now -Continue IV fluids -Type and screen ordered (4) UTI (urinary tract infection) Qualifiers: Hematuria presence: with hematuria Is this a current diagnosis for this admission?: Yes Plan: -Diagnosed 2 days prior with positive nitrite and leukocyte in the UA -Needed with Macrobid in the ED -Patient is currently on rocephin received cefepime too for suspected meningitis which should cover her UTI as well (5) Fever Qualifiers: Fever type: unspecified Qualified Code(s): R50.9 - Fever, unspecified Is this a current diagnosis for this admission?: Yes Plan: -Likely secondary to ongoing infection - last fever episode 01/14/20 102 - on tylenol - blood culture negative x 48 hrs - repeat Bcx sent - CSF growing e.coli -On appropriate antibiotics (6) Spina bifida Qualifiers: Presence of hydrocephalus: without hydrocephalus Is this a current diagnosis for this admission?: Yes Plan: This may be playing a role in meningitis, but treatment is the same. - Time Time Spent with patient: 25-34 minutes Anticipated Discharge Disposition: Home, Self Care - to be determined Anticipated Discharge Timeframe: to be determined
[2020-01-16 14:41] LABS: GENTAMICIN-TROUGH 4.6 ug/mL (<2.0)
[2020-01-16] MEDS ORDERED: CEFTRIAXONE 2 GM/D5W RTU 2 GM/50 ML RTUPB IV SCH (18:00)
--- NOTE | 2020-01-16 18:58 | PDOC TRANSFER SUMMARY ---
General Admission Date/PCP: 01/12/20 14:21 REJI LEIJA MD Resuscitation Status: Full Code - Transfer Diagnosis (1) Meningitis Is this a current diagnosis for this admission?: Yes Diagnosis Summary: came in due to AMS, fever, has worsening headache and photophobia 3 days prior - was being treated for UTI - +ve confusion, +ve nuchal rigidity - WBC 19.6>18.7>15.3 neutrophil predominant - s/p LP with CSF cloudy and yellowish in appearance - CSF culture growing E.coli - blood and urine culture negative in 48 hrs - ID consulted. Recommended to de escalate to rocephin. repeat LP to see if CSF has cleared. - Abx Ceftri 2 doses stopped 01/13/20 Cefepime D4 started 01/13/20 stopped 01/16/20 Vanc 2 days stopped 01/14/20 Ampicillin 2 days stopped 01/14/20 Gentamycin D2 started 01/14/20- stopped 01/16/20 Acyclovir 2 days stopped 01/14/20 Ceftriaxone D1 started 01/16/20 - was not given dexa because abx has already been given several hours after LP - awaiting bed availability at [facility]. Accepting physician Dr. Kan - awaiting bed availability at [facility]. - (2) Acute encephalopathy Is this a current diagnosis for this admission?: Yes Diagnosis Summary: - IMPROVED - came in with AMS, fever, headache - Hx of migraine -CT head negative - EEG unrevealing for epileptic focus -electrolytes within range -LP and CSF culture growing E.coli -rocephin for abx -We will continue to monitor (3) Upper GI bleed Is this a current diagnosis for this admission?: Yes Diagnosis Summary: -Patient had one episode of coffee-ground emesis in the ED -Digital rectal exam heme positive -Hemoglobin 11>10.8 from 13.8 -Hemodynamically stable -started on Tube feeds slow rate -on Protonix -will monitor no indication for blood transfusion or emergent EGD for now -Continue IV fluids -Type and screen ordered (4) UTI (urinary tract infection) Is this a current diagnosis for this admission?: Yes Diagnosis Summary: -Diagnosed 2 days prior with positive nitrite and leukocyte in the UA -Needed with Macrobid in the ED -Patient is currently on rocephin received cefepime too for suspected meningitis which should cover her UTI as well (5) Fever Is this a current diagnosis for this admission?: Yes Diagnosis Summary: -Likely secondary to ongoing infection - last fever episode 01/14/20 102 - on tylenol - blood culture negative x 48 hrs - repeat Bcx sent - CSF growing e.coli -On appropriate antibiotics (6) Spina bifida Is this a current diagnosis for this admission?: Yes Diagnosis Summary: This may be playing a role in meningitis, but treatment is the same. - Transfer Medications Home Medications: Alprazolam [Xanax 0.5 mg Tablet] 0.5 mg PO QIDP PRN 01/12/20 Benzonatate [Tessalon Perles 100 mg Capsule] 200 mg PO TIDP PRN 01/12/20 Butalb/Acetaminophen/Caffeine [Fioricet (50-325-40 mg) Tablet] 1 tab PO Q8HP PRN 01/12/20 Gabapentin [Neurontin 300 mg Capsule] 1,200 mg PO QHS 01/12/20 Gabapentin [Neurontin 300 mg Capsule] 600 mg PO NOON 01/12/20 Gabapentin [Neurontin 300 mg Capsule] 600 mg PO QAM 01/12/20 Hydrocodone/Acetaminophen [Norton 7.5-325 mg Tablet] 1 tab PO NOON 01/12/20 Hydrocodone/Acetaminophen [Norton 7.5-325 mg Tablet] 1 tab PO QAM 01/12/20 Hydrocodone/Acetaminophen [Norton 7.5-325 mg Tablet] 1 tab PO QPM 01/12/20 Hydrocodone/Acetaminophen [Norton 7.5-325 mg Tablet] 2 tab PO HSP PRN 01/12/20 Nitrofurantoin Monohyd/M-Cryst [Macrobid 100 mg Capsule] 100 mg PO BID 01/12/20 Prednisone [Deltasone 10 mg Tablet] 10 mg PO .TAPER DOSING 01/12/20 Promethazine HCl [Phenergan 25 mg Tablet] 25 mg PO Q4HP PRN 01/12/20 Transfer Medications: Current Medications Acetaminophen (Tylenol 650 Mg Supp) 650 mg SC Q4HP PRN PRN Reason: FEVER >101 Stop: 02/11/20 14:20 Last Admin: 01/15/20 00:08 Dose: 650 mg Documented by: Albuterol/Ipratropium (Duoneb 3 Ml Ampul) 3 ml NEB Q4HP PRN PRN Reason: SHORTNESS OF BREATH Stop: 02/11/20 14:20 Dextrose (Dextrose Inj 50% Syringe (25 Gm/50 Ml)) 12.5 gm IV PRN PRN; Protocol PRN Reason: FOR BG 50-69 IN ALERT PATIENT Stop: 02/14/20 12:54 Dextrose (Dextrose Inj 50% Syringe (25 Gm/50 Ml)) 25 gm IV PRN PRN; Protocol PRN Reason: PER PROTOCOL Stop: 02/14/20 12:54 Glucagon (Glucagen Inj 1 Mg Vial) 1 mg IM PRN PRN; Protocol PRN Reason: Evaluate for BG < 70 Stop: 02/14/20 12:54 Glucose (Glutose 40% Gel 15 Gm Tube) 15 gm PO PRN PRN; Protocol PRN Reason: FOR BG 50-69 IN ALERT PATIENT Stop: 02/14/20 12:54 Glucose (Glutose 40% Gel 15 Gm Tube) 30 gm PO PRN PRN; Protocol PRN Reason: FOR BG < 50 IN ALERT PATIENT Stop: 02/14/20 12:54 Heparin Sodium (Porcine) (Heparin Inj 5,000 Units/Ml 1 Ml Vial) 5,000 unit SUBCUT Q8 BRENDA Stop: 02/11/20 21:59 Last Admin: 01/16/20 13:45 Dose: 5,000 unit Documented by: Heparin Sodium (Porcine) (Heparin Flush 10 Unit/Ml 5 Ml Disp.Syrg) 30 unit IV Q12 [facility] Stop: 02/15/20 09:59 Last Admin: 01/16/20 09:04 Dose: 30 unit Documented by: Heparin Sodium (Porcine) (Heparin Flush 10 Unit/Ml 5 Ml Disp.Syrg) 30 unit IV .AFTER EACH USE PRN Stop: 02/15/20 07:59 Last Admin: 01/16/20 13:55 Dose: 30 unit Documented by: Sodium Chloride (Nacl 0.45% 1000 Ml Iv Soln) 1,000 mls @ 80 mls/hr IV DMITRIY NUOUS PRN PRN Reason: THIS MED IS NOT "PRN" Stop: 02/15/20 07:47 Last Admin: 01/16/20 08:10 Dose: 80 mls/hr Documented by: Ceftriaxone Sodium/Dextrose (Rocephin Rtu 2 Gm/D5w 50 Ml Premix Bag) 2 gm in 50 mls @ 100 mls/hr IV Q12A BRENDA Stop: 01/23/20 17:59 Last Admin: 01/16/20 18:30 Dose: 100 mls/hr, 100 mls/hr Documented by: Insulin Human Lispro (Humalog Insulin 100 Unit/1 Ml 3 Ml Vial) 0 - 12 unit SUBCUT Q6 [facility]; Protocol Stop: 02/14/20 17:59 Last Admin: 01/16/20 18:41 Dose: Not Given Documented by: Metoprolol Tartrate (Lopressor Inj/Pf 5 Mg/5 Ml Sdv) 5 mg IV Q4HP PRN PRN Reason: FOR HR > 130 Stop: 02/12/20 23:37 Last Admin: 01/16/20 06:51 Dose: 5 mg Documented by: Metoprolol Tartrate (Lopressor 25 Mg Tablet) 25 mg PO DAILY [facility] Stop: 02/14/20 13:14 Last Admin: 01/16/20 09:03 Dose: 25 mg Documented by: Morphine Sulfate (Morphine 10 Mg/Ml Inj) 1 mg IV Q4HP PRN PRN Reason: FOR PAIN Stop: 01/22/20 11:51 Last Admin: 01/15/20 13:48 Dose: 1 mg Documented by: Pantoprazole Sodium (Protonix Iv Inj 40 Mg Vial) 40 mg IV BID [facility] Stop: 01/19/20 17:59 Last Admin: 01/16/20 18:30 Dose: 40 mg Documented by: Pharmacy Profile Note (Medication Communication Order) 1 each [facility] .NOTICE NR Stop: 02/13/20 08:59 Sodium Chloride (Nacl 0.9% Inj/Pf 10 Ml Sdv) 10 ml IV Q12 [facility] Stop: 02/15/20 09:59 Last Admin: 01/16/20 09:04 Dose: 10 ml Documented by: Sodium Chloride (Nacl 0.9% Inj/Pf 10 Ml Sdv) 10 ml IV .AFTER EACH USE PRN Stop: 02/15/20 07:59 Last Admin: 01/16/20 13:56 Dose: 10 ml Documented by: - Allergies Allergies/Adverse Reactions: Sulfa (Sulfonamide Antibiotics) Allergy (Verified 07/02/16 06:35) Hospital Course Hospital Course: ALLAN KEANE I is a 54 year old female, past medical history of spina bifida, migraine who was brought in by EMS due to altered mental status. Patient started to experience headache about 3 days prior to admission. She was seen at [facility] 01/08 for the headache and was prescribed Fioricet, Phenergan, prednisone taper for migraine. Upon speaking to her her headache was not her usual migraine headaches. She came to [facility] January 09 due to headache and was found to have a UTI, with positive nitrite, increased WBC in the urine. Patient was sent home on Macrobid. At around 3 AM this morning her tried to give her her medications when he noticed that she was clenching her jaw shut, grinding her teeth and could not recognize him and was very confused. She also apparently had episodes of hematemesis in the emergency room. Emergency room, blood pressure 150/87, heart rate of 106, temperature 99.5. CBC showed WBC count of 19.6, hemoglobin of 11.1, platelet count 485. CMP showed normal creatinine, normal electrolytes, normal ammonia. Urinalysis no nitrites no leukocytes. She was given 1 dose of IV ceftriaxone. CT scan of the head was negative. When I examined her in the emergency room, she was minimally verbal, with periods of restlessness confusion. She exhibits nuchal rigidity. Lumbar puncture was done per IR which showed cloudy, yellow CSF, CSF WBC 3925, glucose less than 20, CSF protein 1727 which are consistent with bacterial meningitis. Vancomycin and ampicillin added on top of ceftriaxone. She was subsequently admitted for further management. 01/13/20 D2 Hospital stay. She was seen and examined at bedside. She is still not talking and not following commands, but open eyes spontaneously. She is still spiking fever Tmax 103. Preliminary CSF result gram stain no bacteria seen. blood culture and urine culture negative 24 hrs. Of note, CSF sample was taken >4 hrs after receiving 1 dose of ceftriaxone. ID consulted. I was able to speak to her about her diagnosis. Ceftriaxone switched to cefepime. 01/14/20 D3 Hospital stay. She was seen and examined at bedside. She is still very altered and she was noted to have episodes of hyperventilation and 5 seconds of apnea. Her pupils are equal but sluggishly reactive. I asked Dr. De Leon to assess her unfortunately he is unable to take her down to ICU due to bed availability. Repeat CT head showed no acute findings. CSF culture preliminary showed growth of gram negative rods. Her abx was switched to cefepime since yesterday, still on ampicillin, vanc and acyclovir. Infectious disease was consulted who recommended to add gentamycin to cefepime or switch to meropenem. I reached out to [facility] for possible transfer but they are unfortunately at capacity. I was able to discuss her case with Dr. Cuba Hummel because I was concerned about increased ICP and wanted his opinion regarding m annitol or 3% saline. He recommended against it unless there are clear signs she's herniating like anisocoria, obtundation, or CT head shows edema. I spoke to [facility] who is at capacity as well. I reached out to [facility] and was able to speak to a neurologist Dr. Kan who accepted her. However due to unavailability of bed in the ICU she will be put on a wait list until she gets a bed. 01/15/20 D4 hospital stay. She was seen and examined at bedside. Not much has changed in terms of mental status although she opens her eyes when her name is called. Her pupils are 4 mm briskly reactive. Last fever episode (01/14/20) midnight 102. 4. Final CSF culture growing E.coli sensitive to ampicillin, merem, bactrim. She is on cefepime and genta per ID recs. Still tachycardic and tachypneic. She was started on toradol for pain, and trial morphine. Still awaiting [facility] transfer. 01/16/20 D5 Hospital Stay. She was seen and examined at bedside. She seems much more alert today, she actually opens her eyes when called and responds to command like opening her eyes and squeezing hands. She is still unable to talk fully. She still spiked a fever of 100.6 yesterday at around 3 pm. She was started on tube feeding slow rate. Her abx has been de escalated to rocephin per CSF culture results. She was accepted at [place] as well awaiting bed availability. ID recommend repeat Lumbar tap to see if CSF is clear and if not transfer to tertiary care center for intrathecal treatment. Physical Exam Vital Signs: Temp Pulse Resp BP Pulse Ox 98.9 F 111 H 18 132/95 H 97 01/16/20 15:23 01/16/20 15:23 01/16/20 15:23 01/16/20 15:23 01/16/20 15:23 Intake & Output 01/15/20 01/16/20 01/17/20 06:59 06:59 06:59 Intake Total 1200 3400 192 Balance 1200 3400 192 Weight 62.1 kg 63.1 kg General appearance: PRESENT: cooperative, mild distress Head exam: PRESENT: atraumatic, normocephalic Eye exam: PRESENT: EOMI, PERRLA Ear exam: PRESENT: normal external ear exam Neck exam: PRESENT: meningismus Respiratory exam: PRESENT: clear to auscultation nolberto, symmetrical, tachypnea Cardiovascular exam: PRESENT: +S1, +S2, tachycardia Pulses: PRESENT: +2 pedal pulses bilateral GI/Abdominal exam: PRESENT: normal bowel sounds, soft. ABSENT: rebound, tenderness Extremities exam: PRESENT: other - stiffness noted Neurological exam: PRESENT: altered Results Laboratory Results: 01/16/20 05:45 01/16/20 05:45 01/16/20 01/16/20 05:45 05:45 WBC 17.0 H RBC 3.45 L Hgb 9.9 L Hct 30.8 L MCV 89 MCH 28.7 MCHC 32.2 RDW 16.6 H Plt Count 500 H Seg Neutrophils % Not Reportable Sodium 148.2 H Potassium 4.1 Chloride 112 H Carbon Dioxide 31 H Anion Gap 5 BUN 18 Creatinine 0.60 Est GFR ( Amer) > 60 Glucose 141 H Calcium 9.4 Total Bilirubin 0.6 AST 138 H Alkaline Phosphatase 103 Total Protein 5.9 L Albumin 2.9 L 01/12/20 01/12/20 01/12/20 07:07 07:07 15:20 Creatine Kinase 29 L 80 Troponin I 0.052 01/12/20 20:55 Creatine Kinase Troponin I 0.052 Impressions: Chest CT 01/12/20 00:00 IMPRESSION: 1. Atelectasis at the lung bases with no focal confluent consolidation. 2. Too small to characterize hepatic lesions likely hepatic cysts or small hemangiomas. Lumbar Puncture CT 01/12/20 00:00 IMPRESSION: Lumbar puncture under CT guidance. No immediate complication. Chest X-Ray 01/14/20 00:00 IMPRESSION: BILATERAL AIRSPACE DISEASE WITH INCREASING CONSOLIDATION IN THE LEFT LUNG WORRISOME FOR PNEUMONIA. Head CT 01/14/20 00:00 IMPRESSION: NORMAL BRAIN CT WITHOUT CONTRAST. EVIDENCE OF ACUTE STROKE: NO. Head MRI 01/14/20 00:00 IMPRESSION: NORMAL MRI OF THE BRAIN WITHOUT INTRAVENOUS GADOLINIUM CONTRAST. EVIDENCE OF ACUTE STROKE: NO. PICC Line Insertion 01/14/20 00:00 IMPRESSION: SUCCESSFUL PLACEMENT OF A 5 FR DUAL LUMEN 39 CM PICC IN THE LEFT BASILIC VEIN. KUB X-Ray 01/14/20 08:46 IMPRESSION: 1. NASOGASTRIC TUBE, TIP IN THE STOMACH. 2. DISTENDED CONTRAST FILLED BLADDER. CORRELATE WITH ANY POSSIBILITY OF BLADDER OUTLET OBSTRUCTION. 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 Time Spent: Greater than 30 Minutes
[2020-01-16 22:09] VITALS: BP 118/79
[2020-01-18 07:01] LABS: HSV SOURCE CSF
== END 2020-01-16 20:20 | disposition short-term general hospital (02) | DRG 95 ==
LOC: ER 06:54 → EH 14:21 → 3S 23:20 → UNDODISIN 01-13 21:45
PROVIDERS: ADMIT Internal Medicine; ATTEND Internal Medicine
PROC: 009U3ZX Drainage of Spinal Canal, Percutaneous Approach, Diagnostic (ICD-10-PCS; principal; 2020-01-12)
PROC: 02HV33Z Insertion of Infusion Device into Superior Vena Cava, Percutaneous Approach (ICD-10-PCS; 2020-01-14)
DX: G00.8 Other bacterial meningitis (principal); N39.0 Urinary tract infection, site not specified; G93.40 Encephalopathy, unspecified; K92.2 Gastrointestinal hemorrhage, unspecified; B96.20 Unspecified Escherichia coli [E. coli] as the cause of diseases classified elsewhere; G43.909 Migraine, unspecified, not intractable, without status migrainosus; K21.9 Gastro-esophageal reflux disease without esophagitis; F32.9 Major depressive disorder, single episode, unspecified; Q05.9 Spina bifida, unspecified; Z79.899 Other long term (current) drug therapy; Z88.2 Allergy status to sulfonamides
CPT/HCPCS: 36415; 36573; 36600; 62328; 70450; 70551; 71045; 71260; 74018; 80053; 80170; 80307; 81001; 82140; 82270; 82271; 82550; 82803; 82945; 82962; 83036; 83735; 84157; 84443; 84484; 85025; 86850; 86900; 86901; 87015; 87040; 87070; 87077; 87086; 87116; 87186; 87205; 87206; 87529; 89050; 93005; 93010; 95819; 96361; 96365; 96375; 99283; 99285; C9113; J0133; J0290; J0692; J0696; J1170; J1580; J1642; J1644; J1815; J1885; J2060; J2270; J2405; J3360; J3370; J3480; J3490; J7030; J7050; J7060; J7121

== ENCOUNTER → 2020-03-31 | Outpatient (CLI) | payer MEDICARE ==
[2020-03-31 11:21] LABS: ABSOLUTE BASOPHILS # (AUTO) 0.1 10^3/uL (0.0-0.2); ABSOLUTE EOSINOPHILS # (AUTO) 0.1 10^3/uL (0.0-0.6); ABSOLUTE LYMPHOCYTES (AUTO) 1.1 10^3/uL (0.5-4.7); ABSOLUTE MONOCYTES (AUTO) 0.4 10^3/uL (0.1-1.4); ABSOLUTE NEUT (AUTO) 4.1 10^3/uL (1.7-8.2); BASOPHILS % (AUTO) 1.2 % (0-2); EOSINOPHILS % (AUTO) 2.1 % (0-6); HEMATOCRIT 28.6 % (36.0-47.0); HEMOGLOBIN 9.3 g/dL (12.0-15.5); LYMPHOCYTES % (AUTO) 18.6 % (13-45); MEAN CORPUSCULAR HEMOGLOBIN 26.8 pg (27.0-33.4); MEAN CORPUSCULAR HGB CONC 32.6 g/dL (32.0-36.0); MEAN CORPUSCULAR VOLUME 82 fl (80-97); MONOCYTES % (AUTO) 7.1 % (3-13); PLATELET COUNT 591 10^3/uL (150-450); RED BLOOD COUNT 3.48 10^6/uL (3.72-5.28); RED CELL DISTRIBUTION WIDTH 21.6 % (11.5-14.0); TOTAL CELLS COUNTED % (AUTO) 100 %; WHITE BLOOD COUNT 5.7 10^3/uL (4.0-10.5)
[2020-03-31 11:41] LABS: ALBUMIN 2.5 g/dL (3.5-5.0); ALKALINE PHOSPHATASE 151 U/L (38-126); ANION GAP 5 (5-19); ASPARTATE AMINO TRANSFERASE 33 U/L (14-36); BILIRUBIN,DIRECT 0.2 mg/dL (0.0-0.4); BILIRUBIN,TOTAL 0.4 mg/dL (0.2-1.3); CALCIUM 8.9 mg/dL (8.4-10.2); CARBON DIOXIDE 31 mmol/L (22-30); CHLORIDE 101 mmol/L (98-107); GLUCOSE 97 mg/dL (75-110); POTASSIUM 3.7 mmol/L (3.6-5.0); TOTAL PROTEIN 6.1 g/dL (6.3-8.2)
[2020-03-31 11:45] LABS: BLOOD UREA NITROGEN < 2 mg/dL (7-20)
== END ==
LOC: OD 10:16
PROVIDERS: ATTEND Obstetrics & Gynecology
DX: K11.20 Sialoadenitis, unspecified (principal); Z79.899 Other long term (current) drug therapy
CPT/HCPCS: 36415; 80053; 85025